=== PATIENT | female | born 1985 ===

== ENCOUNTER 2019-08-15 17:24 | Inpatient (IN) ==
[2019-08-15] MEDS ORDERED: INFLUENZA VIRUS VACCINE 0.5 ML SYRINGE IM ONE (21:37)
[2019-08-15] MEDS ORDERED: diphenhydrAMINE CAP 25 MG CAPSULE PO PRN (23:07)
[2019-08-15] MEDS ORDERED: DEXTROSE 50% 25 GM/50 ML VIAL IV PRN (23:07)
[2019-08-15] MEDS ORDERED: ONDANSETRON 4 MG/2 ML VIAL IV PRN (23:07)
[2019-08-15] MEDS ORDERED: NICOTINE 21 MG/24 HR PATCH TRANSDERM PRN (23:07)
[2019-08-15] MEDS ORDERED: BISACODYL 5 MG TABLET PO PRN (23:07)
[2019-08-15] MEDS ORDERED: GLUCAGON 1 MG VIAL IM PRN (23:07)
[2019-08-15 23:54] LABS: Basophils % 0.5 % (0.0-0.8); Eosinophils # 0.3 10*3/uL (0.0-0.87); Eosinophils % 3.4 % (0.00-10.9); Hematocrit 27.6 VOL% (35.7-47.0); Hemoglobin 9.6 GM/DL (12.0-16.0); Immature Granulocytes % 0.8 %; Immature Granulocytes Absolute 0.07 #; Lymphocytes # 2.5 10*3/uL (1.4-4.0); Lymphocytes % 29.1 % (21.3-54.2); Mean Corpuscular HGB Conc 34.8 GM/DL (32-36); Mean Corpuscular Volume 91.7 FL (87-102); Mean Platelet Volume 10.7 FL (9.6-12.0); Monocytes % 7.2 % (1.7-12.7); Platelet Count 235 T/CUMM (130-400); Red Blood Count 3.01 MC/CUMM (3.8-5.5); Red Cell Distribution Width 12.3 % (9.3-17.3); White Blood Count 8.5 T/CUMM (4-12)
[2019-08-16 00:17] LABS: Albumin 1.4 G/DL (3.4-5.0); Bilirubin,Total 0.4 MG/DL (0.2-1.0); Calcium 8.2 MG/DL (8.5-10.1); Osmolality,Calculated 283.4 MOS/KG (273-304); Risk Ratio 4.41; VLDL CHOLESTEROL 69.2 MG/DL
[2019-08-16] MEDS: SODIUM CHLORIDE 0.9% 1,000 ML IV SCH ×2 (01:02→11:25)
[2019-08-16] MEDS: INSULIN REGULAR 100 UNIT/ML SUBCUT SCH ×4 (01:04→17:29)
[2019-08-16 01:06] LABS: Barbiturates Screen,Urine Negative (Negative); Benzodiazepines Screen,Urine Negative (Negative); Cannabinoid Screen,Urine Negative (Negative); Opiate Screen,Urine Positive (Negative); Phencyclidine Screen,Urine Negative (Negative)
[2019-08-16 01:11] LABS: Apearance,Urine CLEAR (Clear); Bilirubin,Urine Negative (Negative); Blood, Urine Negative (Negative); Glucose,Urine (UA) >=500 mg/dL (Negative); Hyaline Casts,Urine 6 /LPF (0-3); Ketones,Urine Negative (Negative); Mucus,Urine Occasional /LPF (Occasional); Nitrite,Urine Negative (Negative); Protein,Urine >=500 MG/DL; RBC,Urine 9 /HPF (0-4); Squamous Epithelial Cell,Urine Occasional /HPF (0-10); Transitional Epi Cells,Urine Occasional /HPF (<1); Urine Color Yellow (Yellow); Urine Specific Gravity 1.018 (1.001-1.035); Urine Urobilinogen < 2.0 EU/DL (0.2-1.0); WBC,Urine 2 /HPF (0-6)
[2019-08-16] MEDS: VANCOMYCIN INJ 1,750 MG in SODIUM CHLORIDE 0.9% 500 ML IV SCH ×2 (03:00→13:25)
[2019-08-16] MEDS: ACETAMINOPHEN 325 MG TABLET PO PRN ×2 (06:15→11:24)
[2019-08-16] MEDS ORDERED: IBUPROFEN 600 MG TABLET PO PRN (08:58)
[2019-08-16] MEDS: ASPIRIN 325 MG TABLET PO SCH (11:24)
[2019-08-16] MEDS: POTASSIUM CHLORIDE 20 MEQ TABLET PO PRN ×2 (11:25→18:34)
[2019-08-17] MEDS: INSULIN REGULAR 100 UNIT/ML SUBCUT SCH ×4 (02:00→20:35)
[2019-08-17] MEDS: SODIUM CHLORIDE 0.9% 1,000 ML IV SCH ×4 (02:03→15:11)
[2019-08-17] MEDS: VANCOMYCIN INJ 1,750 MG in SODIUM CHLORIDE 0.9% 500 ML IV SCH ×2 (02:07→17:16)
[2019-08-17] MEDS ORDERED: BUPIVACAINE MPF 0.25% 30 ML VIAL ONE (06:39)
[2019-08-17] MEDS ORDERED: LIDOCAINE MPF 1% /EPI 30 ML VIAL ONE (06:39)
[2019-08-17] MEDS ORDERED: MIDAZOLAM 2 MG/2 ML VIAL ONE (08:33)
[2019-08-17] MEDS ORDERED: LIDOCAINE 2% 5 ML VIAL ONE (08:33)
[2019-08-17] MEDS ORDERED: PROPOFOL 200 MG/20 ML VIAL IV ONE (08:33)
[2019-08-17] MEDS ORDERED: SODIUM CHLORIDE 0.9% 250 ML IV ONE (08:34)
[2019-08-17] MEDS ORDERED: fentaNYL 100 MCG/2 ML VIAL ONE (08:34)
[2019-08-17] MEDS ORDERED: KETAMINE 500 MG/10 ML VIAL ONE (08:34)
[2019-08-17] MEDS ORDERED: ONDANSETRON 4 MG/2 ML VIAL IV PRN (08:49)
[2019-08-17] MEDS ORDERED: HYDROmorphone 2 MG/1 ML VIAL IV PRN (08:49)
[2019-08-17] MEDS ORDERED: HYDROmorphone 2 MG/1 ML VIAL ONE (08:53)
[2019-08-17] MEDS ORDERED: ONDANSETRON 4 MG/2 ML VIAL ONE (08:53)
[2019-08-17] MEDS: ASPIRIN 325 MG TABLET PO SCH (10:23)
[2019-08-17] MEDS: RIVAROXABAN 15 MG TABLET PO SCH (10:23)
[2019-08-17] MEDS ORDERED: KETOROLAC 30 MG/1 ML VIAL IV ONE (10:39)
[2019-08-17 14:57] LABS: Protein/Creatinine Ratio,Urine 13.2 RATIO
[2019-08-17] MEDS ORDERED: ASPIRIN CHEW 81 MG TABLET PO ONE (20:52)
[2019-08-17] MEDS: ACETAMINOPHEN 325 MG TABLET PO PRN (23:14)
[2019-08-18] MEDS: INSULIN REGULAR 100 UNIT/ML SUBCUT SCH ×2 (01:00→07:23)
[2019-08-18] MEDS: VANCOMYCIN INJ 1,750 MG in SODIUM CHLORIDE 0.9% 500 ML IV SCH (02:15)
[2019-08-18] MEDS: SODIUM CHLORIDE 0.9% 1,000 ML IV SCH (02:17)
[2019-08-18 05:49] LABS: Calcium 7.2 MG/DL (8.5-10.1); Osmolality,Calculated 289.3 MOS/KG (273-304)
[2019-08-18] MEDS: ASPIRIN 325 MG TABLET PO SCH (09:55)
[2019-08-18] MEDS: RIVAROXABAN 15 MG TABLET PO SCH (09:55)
[2019-08-18 11:36] LABS: Protein C Activity Plasma 110 % (70 - 150)
[2019-08-18 14:00] VITALS: BP 166/86
[2019-08-18 15:45] LABS: DRVVT Screen Ratio 1.1 ratio (0.0 - 1.1)
[2019-08-19 11:44] LABS: Protein S Activity Plasma 159 % (50 - 160)
[2019-08-21 16:16] LABS: FACV Specimen Whole Blood
== END 2019-08-18 13:32 | disposition home or self-care (01) | DRG 988 ==
LOC: N.4E 20:17
PROVIDERS: ADMIT Internal Medicine; ATTEND Internal Medicine Geriatric Medicine

== ENCOUNTER 2019-09-30 12:56 | Observation (INO) ==
[2019-09-30] MEDS ORDERED: INFLUENZA VIRUS VACCINE 0.5 ML SYRINGE IM ONE (14:54)
[2019-09-30] MEDS ORDERED: MORPHINE 4 MG/1 ML VIAL IV PRN (15:05)
[2019-09-30] MEDS ORDERED: ONDANSETRON 4 MG/2 ML VIAL IV PRN (15:05)
[2019-09-30] MEDS ORDERED: PROMETHAZINE 25 MG/1 ML VIAL IM PRN (15:05)
[2019-09-30] MEDS ORDERED: ACETAMINOPHEN 325 MG TABLET PO PRN (15:05)
[2019-09-30] MEDS ORDERED: SODIUM CHLORIDE 0.9% 1,000 ML IV ONE (15:08)
[2019-09-30] MEDS ORDERED: GLUCAGON 1 MG VIAL IM PRN (15:09)
[2019-09-30] MEDS ORDERED: DEXTROSE 50% 25 GM/50 ML VIAL IV PRN (15:09)
[2019-09-30 15:41] LABS: Basophils # 0.1 10*3/uL (0.0-0.2); Basophils % 0.4 % (0.0-0.8); Eosinophils % 0.1 % (0.00-10.9); Hematocrit 32.3 VOL% (35.7-47.0); Immature Granulocytes Absolute 0.18 #; Lymphocytes # 1.7 10*3/uL (1.4-4.0); Mean Corpuscular HGB Conc 34.1 GM/DL (32-36); Mean Corpuscular Volume 91.2 FL (87-102); Mean Platelet Volume 10.5 FL (9.6-12.0); Neutrophils % 85.5 % (38.7-73.9); Platelet Count 277 T/CUMM (130-400); Red Blood Count 3.54 MC/CUMM (3.8-5.5); Red Cell Distribution Width 12.9 % (9.3-17.3); White Blood Count 17.3 T/CUMM (4-12)
[2019-09-30] MEDS ORDERED: ACETAMINOPHEN 500 MG TABLET PO ONE (15:43)
[2019-09-30 16:02] LABS: Albumin 1.8 G/DL (3.4-5.0); Bilirubin,Total 0.4 MG/DL (0.2-1.0); Osmolality,Calculated 286.3 MOS/KG (273-304); Total Protein 5.7 G/DL (6.4-8.3)
[2019-09-30 16:10] LABS: Thyroid Stimulating Hormone 1.62 uIU/ml (0.358-3.74)
[2019-09-30] MEDS ORDERED: MAGNESIUM SULF RIDER 2 GM in PREMIX 1 EACH IV ONE (16:13)
[2019-09-30] MEDS: INSULIN REGULAR 100 UNIT/ML SUBCUT SCH ×2 (16:37→20:42)
[2019-09-30] MEDS: PANTOPRAZOLE 40 MG TABLET PO SCH (16:37)
[2019-09-30] MEDS ORDERED: BICILLIN LA 1,200,000 UNIT/2 ML SYRINGE IM STA (16:50)
[2019-09-30] MEDS: SODIUM CHLORIDE 0.9% 1,000 ML IV SCH (17:43)
[2019-09-30] MEDS: AMPICILLIN/SULBACTAM 3,000 MG in SODIUM CHLORIDE 0.9% 100 ML IV SCH (17:50)
[2019-09-30 20:28] LABS: Apearance,Urine Slightly Hazy (Clear); Bacteria,Urine Occasional /HPF (Few); Bilirubin,Urine Negative (Negative); Blood, Urine Small mg/dL (Negative); Glucose,Urine (UA) >=500 mg/dL (Negative); Hyaline Casts,Urine 7 /LPF (0-3); Ketones,Urine Negative (Negative); Mucus,Urine Occasional /LPF (Occasional); Nitrite,Urine Negative (Negative); Protein,Urine >=500 MG/DL; RBC,Urine 8 /HPF (0-4); Squamous Epithelial Cell,Urine Occasional /HPF (0-10); Transitional Epi Cells,Urine Occasional /HPF (<1); Urine Color Yellow (Yellow); Urine Urobilinogen < 2.0 EU/DL (0.2-1.0); WBC,Urine 2 /HPF (0-6)
[2019-10-01 01:03] LABS: Basophils % 0.2 % (0.0-0.8); Eosinophils % 0.1 % (0.00-10.9); Hematocrit 29.8 VOL% (35.7-47.0); Hemoglobin 10.3 GM/DL (12.0-16.0); Immature Granulocytes Absolute 0.33 #; Lymphocytes # 1.7 10*3/uL (1.4-4.0); Lymphocytes % 10.2 % (21.3-54.2); Mean Corpuscular HGB Conc 34.6 GM/DL (32-36); Mean Corpuscular Volume 91.1 FL (87-102); Mean Platelet Volume 10.6 FL (9.6-12.0); Monocytes % 4.3 % (1.7-12.7); Neutrophils % 83.2 % (38.7-73.9); Platelet Count 245 T/CUMM (130-400); Red Blood Count 3.27 MC/CUMM (3.8-5.5); Red Cell Distribution Width 12.7 % (9.3-17.3); White Blood Count 16.2 T/CUMM (4-12)
[2019-10-01] MEDS: AMPICILLIN/SULBACTAM 3,000 MG in SODIUM CHLORIDE 0.9% 100 ML IV SCH ×2 (01:35→08:48)
[2019-10-01 04:52] LABS: Basophils # 0.1 10*3/uL (0.0-0.2); Basophils % 0.4 % (0.0-0.8); Eosinophils % 0.1 % (0.00-10.9); Hematocrit 32.8 VOL% (35.7-47.0); Hemoglobin 11.1 GM/DL (12.0-16.0); Immature Granulocytes % 1.1 %; Immature Granulocytes Absolute 0.16 #; Lymphocytes % 14.2 % (21.3-54.2); Mean Corpuscular HGB Conc 33.8 GM/DL (32-36); Mean Corpuscular Volume 91.1 FL (87-102); Monocytes % 3.9 % (1.7-12.7); Neutrophils % 80.3 % (38.7-73.9); Platelet Count 249 T/CUMM (130-400); Red Cell Distribution Width 12.7 % (9.3-17.3); White Blood Count 14.3 T/CUMM (4-12)
[2019-10-01 05:17] LABS: Calcium 7.4 MG/DL (8.5-10.1); Osmolality,Calculated 282.5 MOS/KG (273-304)
[2019-10-01 05:22] LABS: Risk Ratio 4.38
[2019-10-01] MEDS ORDERED: ACETAMINOPHEN 500 MG TABLET PO ONE (08:32)
[2019-10-01] MEDS ORDERED: HYDROcodone/CHLORPHENIRAMINE ER 5 ML UDCUP PO ONE (08:39)
[2019-10-01] MEDS: INSULIN REGULAR 100 UNIT/ML SUBCUT SCH ×2 (08:47→11:59)
[2019-10-01] MEDS: PANTOPRAZOLE 40 MG TABLET PO SCH (08:48)
[2019-10-01] MEDS ORDERED: glyBURIDE/METFORMIN 5-500 MG TABLET PO SCH (10:45)
[2019-10-01] MEDS: SODIUM CHLORIDE 0.9% 1,000 ML IV SCH (10:48)
[2019-10-01] MEDS ORDERED: AZITHROMYCIN 250 MG TABLET PO ONE (10:51)
[2019-10-01] MEDS ORDERED: POTASSIUM CHLORIDE 10 MEQ TABLET PO SCH (11:00)
[2019-10-01] MEDS ORDERED: RIVAROXABAN 15 MG TABLET PO SCH (11:00)
[2019-10-01] MEDS ORDERED: metOLazone 5 MG TABLET PO SCH (11:00)
[2019-10-01] MEDS ORDERED: LOSARTAN 50 MG TABLET PO SCH (11:00)
[2019-10-01] MEDS ORDERED: METOPROLOL TARTRATE 25 MG TABLET PO ONE (11:46)
[2019-10-01 16:13] VITALS: BP 117/79
[2019-10-01] MEDS ORDERED: INSULIN GLARGINE 100 UNIT/ML SUBCUT SCH (21:00)
[2019-10-03 11:27] LABS: Total Protein (Chem) 5.1 G/DL (6.4-8.3)
[2019-10-04 10:40] LABS: Albumin (SPE) 2.2 G/DL (3.2-5.3); Albumin (SPE) Rel % 43.7 %; Alpha 1 (SPE) 0.2 G/DL (0.1-0.4); Alpha 1 (SPE) Rel % 3.9 %; Alpha 2 (SPE) 1.1 G/DL (0.4-1.0); Alpha 2 (SPE) Rel % 22.5 %; Beta (SPE) 0.8 G/DL (0.5-1.1); Gamma (SPE) 0.7 G/DL (0.7-1.7); Gamma (SPE) Rel % 13.3 %
[2019-10-04 10:43] LABS: Beta (SPE) Rel % 16.6 %
== END 2019-10-01 18:00 | disposition home or self-care (01) ==
LOC: N.2E 14:36 → INTOOBSV 14:36 → SUATTDRO 14:36
PROVIDERS: ADMIT Internal Medicine; ATTEND Internal Medicine

== ENCOUNTER 2020-01-10 13:43 | Inpatient (IN) ==
[2020-01-10] MEDS: LEVOFLOXACIN INJ 750 MG in PREMIX 1 EACH IV SCH (18:25)
[2020-01-10] MEDS ORDERED: GLUCAGON 1 MG VIAL IM PRN (18:29)
[2020-01-10] MEDS ORDERED: DEXTROSE 10% 250 ML BAG IV PRN (18:29)
[2020-01-10 18:32] LABS: Basophils % 0.3 % (0.0-0.8); Eosinophils # 0.3 10*3/uL (0.0-0.87); Eosinophils % 3.1 % (0.00-10.9); Hematocrit 29.8 VOL% (35.7-47.0); Hemoglobin 9.8 GM/DL (12.0-16.0); Immature Granulocytes Absolute 0.09 #; Lymphocytes # 2.4 10*3/uL (1.4-4.0); Lymphocytes % 26.5 % (21.3-54.2); Mean Corpuscular HGB Conc 32.9 GM/DL (32-36); Mean Corpuscular Volume 92.8 FL (87-102); Mean Platelet Volume 10.7 FL (9.6-12.0); Monocytes % 6.5 % (1.7-12.7); Neutrophils % 62.6 % (38.7-73.9); Platelet Count 280 T/CUMM (130-400); Red Blood Count 3.21 MC/CUMM (3.8-5.5); Red Cell Distribution Width 13.1 % (9.3-17.3); White Blood Count 8.9 T/CUMM (4-12)
[2020-01-10 18:53] LABS: Alanine Aminotransferase 12 U/L (13-56); Albumin 1.1 G/DL (3.4-5.0); Alkaline Phosphatase 102 U/L (45-117); Aspartate Amino Transferase 12 U/L (0-37); Bilirubin,Total < 0.39 MG/DL (0.2-1.0); Blood Urea Nitrogen 7 MG/DL (7-18); Calcium 7.4 MG/DL (8.5-10.1); Estimated Glom Filtration Rate 65 ML/MIN; Glucose 89 MG/DL (74-106); Osmolality,Calculated 273.5 MOS/KG (273-304); Total Protein 4.9 G/DL (6.4-8.3)
[2020-01-10] MEDS ORDERED: ONDANSETRON 4 MG/2 ML VIAL IV PRN (19:55)
[2020-01-10] MEDS: VANCOMYCIN INJ 1,500 MG in SODIUM CHLORIDE 0.9% 500 ML IV SCH (20:58)
[2020-01-10] MEDS: INSULIN LISPRO 100 UNIT/ML SUBCUT SCH (20:58)
[2020-01-10] MEDS ORDERED: PROMETHAZINE 25 MG/1 ML VIAL IM PRN (23:01)
[2020-01-10] MEDS ORDERED: CETIRIZINE 10 MG TABLET PO PRN (23:42)
[2020-01-11 05:17] LABS: Basophils % 0.5 % (0.0-0.8); Eosinophils # 0.2 10*3/uL (0.0-0.87); Eosinophils % 2.4 % (0.00-10.9); Hematocrit 29.6 VOL% (35.7-47.0); Hemoglobin 9.8 GM/DL (12.0-16.0); Immature Granulocytes % 0.9 %; Immature Granulocytes Absolute 0.08 #; Lymphocytes # 2.5 10*3/uL (1.4-4.0); Lymphocytes % 28.8 % (21.3-54.2); Mean Corpuscular HGB Conc 33.1 GM/DL (32-36); Mean Corpuscular Volume 94.3 FL (87-102); Mean Platelet Volume 10.8 FL (9.6-12.0); Monocytes % 6.2 % (1.7-12.7); Neutrophils % 61.2 % (38.7-73.9); Platelet Count 260 T/CUMM (130-400); Red Blood Count 3.14 MC/CUMM (3.8-5.5); Red Cell Distribution Width 13.2 % (9.3-17.3); White Blood Count 8.7 T/CUMM (4-12)
[2020-01-11 05:33] LABS: Calcium 7.5 MG/DL (8.5-10.1); Osmolality,Calculated 283.1 MOS/KG (273-304)
[2020-01-11] MEDS ORDERED: SODIUM CHLORIDE 0.9% 1,000 ML IV SCH (09:00)
[2020-01-11] MEDS ORDERED: LOSARTAN 50 MG TABLET PO SCH (09:00)
[2020-01-11] MEDS: INSULIN LISPRO 100 UNIT/ML SUBCUT SCH ×4 (09:06→22:04)
[2020-01-11] MEDS: ROSUVASTATIN 20 MG TABLET PO SCH (09:07)
[2020-01-11] MEDS: MAGNESIUM OXIDE 400 MG TABLET PO SCH (09:07)
[2020-01-11] MEDS: POTASSIUM CHLORIDE 10 MEQ TABLET PO SCH (09:07)
[2020-01-11] MEDS: VANCOMYCIN INJ 1,500 MG in SODIUM CHLORIDE 0.9% 500 ML IV SCH ×2 (09:07→22:04)
[2020-01-11] MEDS: PANTOPRAZOLE 40 MG TABLET PO SCH (09:17)
[2020-01-11] MEDS ORDERED: LIDOCAINE 1% 20 ML VIAL ONE (14:49)
[2020-01-11] MEDS ORDERED: BUPIVACAINE MPF 0.25% 30 ML VIAL ONE (14:49)
[2020-01-11] MEDS ORDERED: LIDOCAINE 2% 5 ML VIAL ONE (15:59)
[2020-01-11] MEDS ORDERED: fentaNYL 100 MCG/2 ML VIAL ONE (15:59)
[2020-01-11] MEDS ORDERED: propofoL 200 MG/20 ML VIAL IV ONE (15:59)
[2020-01-11] MEDS ORDERED: SEVOFLURANE 1 UNIT/15 MINUTE INH ONE (15:59)
[2020-01-11] MEDS ORDERED: MIDAZOLAM 2 MG/2 ML VIAL ONE (16:00)
[2020-01-11] MEDS ORDERED: ONDANSETRON 4 MG/2 ML VIAL ONE (16:00)
[2020-01-11] MEDS ORDERED: ONDANSETRON 4 MG/2 ML VIAL IV PRN (16:13)
[2020-01-11] MEDS: HYDROmorphone 2 MG/1 ML VIAL IV PRN ×2 (16:15→16:26)
[2020-01-11] MEDS: LEVOFLOXACIN INJ 750 MG in PREMIX 1 EACH IV SCH (17:12)
[2020-01-12] MEDS ORDERED: traMADol 50 MG TABLET PO ONE (03:25)
[2020-01-12] MEDS ORDERED: ALUMINUM/MAGNES/SIMETH MAX STR 30 ML UDCUP PO PRN (04:00)
[2020-01-12 04:53] LABS: Basophils % 0.4 % (0.0-0.8); Eosinophils # 0.2 10*3/uL (0.0-0.87); Eosinophils % 2.2 % (0.00-10.9); Hematocrit 31.4 VOL% (35.7-47.0); Hemoglobin 10.2 GM/DL (12.0-16.0); Immature Granulocytes Absolute 0.08 #; Lymphocytes # 2.7 10*3/uL (1.4-4.0); Lymphocytes % 32.7 % (21.3-54.2); Mean Corpuscular HGB Conc 32.5 GM/DL (32-36); Mean Corpuscular Volume 94.9 FL (87-102); Mean Platelet Volume 10.6 FL (9.6-12.0); Neutrophils % 56.7 % (38.7-73.9); Platelet Count 270 T/CUMM (130-400); Red Blood Count 3.31 MC/CUMM (3.8-5.5); Red Cell Distribution Width 12.9 % (9.3-17.3); White Blood Count 8.2 T/CUMM (4-12)
[2020-01-12 05:10] LABS: Calcium 7.4 MG/DL (8.5-10.1); Osmolality,Calculated 282.4 MOS/KG (273-304)
[2020-01-12] MEDS ORDERED: SULFAMETHOX/TRIMETHOPRIM 800-160 MG TABLET PO SCH (09:00)
[2020-01-12] MEDS ORDERED: SODIUM HYPOCHLORITE 0.25% IRRIG 473 ML BOTTLE TOP SCH (10:00)
[2020-01-12] MEDS: ROSUVASTATIN 20 MG TABLET PO SCH (10:30)
[2020-01-12] MEDS: MAGNESIUM OXIDE 400 MG TABLET PO SCH (10:30)
[2020-01-12] MEDS: POTASSIUM CHLORIDE 10 MEQ TABLET PO SCH (10:30)
[2020-01-12] MEDS: PANTOPRAZOLE 40 MG TABLET PO SCH (10:30)
[2020-01-12] MEDS: INSULIN LISPRO 100 UNIT/ML SUBCUT SCH (11:17)
[2020-01-12 13:45] VITALS: BP 152/87
== END 2020-01-12 13:15 | disposition home or self-care (01) | DRG 988 ==
LOC: SUATTDRO 15:43 → N.3E 15:43
PROVIDERS: ADMIT Internal Medicine; ATTEND Internal Medicine

== ENCOUNTER 2020-03-07 18:07 | Inpatient (IN) ==
[2020-03-08] MEDS ORDERED: GLUCAGON 1 MG VIAL IM PRN (03:02)
[2020-03-08] MEDS ORDERED: PROMETHAZINE 25 MG/1 ML VIAL IM PRN (03:02)
[2020-03-08] MEDS ORDERED: hydrALAZINE 20 MG/1 ML VIAL IV PRN (03:02)
[2020-03-08] MEDS ORDERED: DEXTROSE 50% 25 GM/50 ML SYRINGE IV PRN (03:02)
[2020-03-08] MEDS ORDERED: ENOXAPARIN 40 MG/0.4 ML SYRINGE SUBCUT SCH (03:30)
[2020-03-08] MEDS: cefTRIAXone 1,000 MG in SYRINGE 1 EACH IV SCH (05:42)
[2020-03-08] MEDS ORDERED: DEXTROSE 10% 250 ML BAG IV PRN (08:30)
[2020-03-08] MEDS ORDERED: ZINC SULFATE 220 MG CAPSULE PO SCH (09:00)
[2020-03-08] MEDS ORDERED: AZITHROMYCIN 250 MG TABLET PO ONE (09:00)
[2020-03-08] MEDS: HYDROXYCHLOROQUINE 200 MG TABLET PO SCH ×2 (09:12→20:37)
[2020-03-08] MEDS: INSULIN LISPRO 100 UNIT/ML SUBCUT SCH ×4 (09:28→20:37)
[2020-03-08] MEDS: ACETAMINOPHEN 325 MG TABLET PO PRN ×3 (09:28→20:51)
[2020-03-08 09:51] LABS: Basophils % 0.2 % (0.0-0.8); Eosinophils % 0.2 % (0.00-10.9); Hematocrit 32.4 VOL% (35.7-47.0); Hemoglobin 10.8 GM/DL (12.0-16.0); Immature Granulocytes % 0.7 %; Immature Granulocytes Absolute 0.06 #; Lymphocytes # 2.3 10*3/uL (1.4-4.0); Lymphocytes % 28.6 % (21.3-54.2); Mean Corpuscular HGB Conc 33.3 GM/DL (32-36); Mean Platelet Volume 10.8 FL (9.6-12.0); Monocytes % 7.2 % (1.7-12.7); Neutrophils % 63.1 % (38.7-73.9); Platelet Count 243 T/CUMM (130-400); Red Blood Count 3.52 MC/CUMM (3.8-5.5)
[2020-03-08 10:17] LABS: Alanine Aminotransferase 19 U/L (13-56); Albumin 1.1 G/DL (3.4-5.0); Alkaline Phosphatase 114 U/L (45-117); Aspartate Amino Transferase 34 U/L (0-37); Bilirubin,Total < 0.39 MG/DL (0.2-1.0); Blood Urea Nitrogen 12 MG/DL (7-18); Calcium 7.6 MG/DL (8.5-10.1); Estimated Glom Filtration Rate 43 ML/MIN; Ferritin 594.4 ng/ml (8-252); Glucose 208 MG/DL (74-106); Osmolality,Calculated 282.5 MOS/KG (273-304); Total Protein 5.8 G/DL (6.4-8.3)
[2020-03-08] MEDS: ONDANSETRON 4 MG/2 ML VIAL IV PRN (11:59)
[2020-03-08] MEDS: guaiFENesin/DM ER 600-30 MG TABLET PO SCH ×2 (14:02→20:37)
[2020-03-09] MEDS: ACETAMINOPHEN 325 MG TABLET PO PRN ×2 (00:24→08:30)
[2020-03-09] MEDS: ONDANSETRON 4 MG/2 ML VIAL IV PRN ×2 (03:05→11:18)
[2020-03-09] MEDS: cefTRIAXone 1,000 MG in SYRINGE 1 EACH IV SCH (03:08)
[2020-03-09] MEDS: INSULIN LISPRO 100 UNIT/ML SUBCUT SCH ×2 (08:30→11:17)
[2020-03-09] MEDS: guaiFENesin/DM ER 600-30 MG TABLET PO SCH (08:30)
[2020-03-09] MEDS ORDERED: AZITHROMYCIN 250 MG TABLET PO SCH (09:00)
[2020-03-09] MEDS ORDERED: HYDROXYCHLOROQUINE 200 MG TABLET PO SCH (09:00)
[2020-03-09 09:30] LABS: Basophils % 0.2 % (0.0-0.8); Eosinophils % 0.2 % (0.00-10.9); Hematocrit 31.7 VOL% (35.7-47.0); Hemoglobin 10.3 GM/DL (12.0-16.0); Immature Granulocytes Absolute 0.06 #; Lymphocytes # 1.9 10*3/uL (1.4-4.0); Lymphocytes % 30.4 % (21.3-54.2); Mean Corpuscular HGB Conc 32.5 GM/DL (32-36); Mean Corpuscular Volume 93.8 FL (87-102); Mean Platelet Volume 10.4 FL (9.6-12.0); Monocytes % 8.2 % (1.7-12.7); Platelet Count 269 T/CUMM (130-400); Red Blood Count 3.38 MC/CUMM (3.8-5.5); White Blood Count 6.2 T/CUMM (4-12)
[2020-03-09 09:48] LABS: Calcium 7.5 MG/DL (8.5-10.1); Osmolality,Calculated 279.5 MOS/KG (273-304)
[2020-03-09 10:14] LABS: Anisocytosis Slight; Band Neutrophils 9 % (0-10); Lymphocytes 20 % (20-55); Macrocytosis Slight; Platelet Estimate Normal; Segmented Neutrophils 66 % (50-85); Smudge Cells Few; Total Cells Counted 100
[2020-03-09 11:56] VITALS: BP 126/78
[2020-03-09] MEDS ORDERED: ENOXAPARIN 40 MG/0.4 ML SYRINGE SUBCUT SCH (21:00)
== END 2020-03-09 15:25 | disposition home or self-care (01) | DRG 177 ==
LOC: N.2W 21:32 → SUATTDRO 21:32
PROVIDERS: ADMIT Internal Medicine; ATTEND Family Medicine

== ENCOUNTER 2020-11-10 22:44 | Inpatient (IN) ==
[2020-11-10 23:13] LABS: Basophils # 0.1 10*3/uL (0.0-0.2); Basophils % 0.3 % (0.0-0.8); Eosinophils # 0.5 10*3/uL (0.0-0.87); Eosinophils % 1.8 % (0.00-10.9); Hematocrit 25.8 VOL% (35.7-47.0); Hemoglobin 8.6 GM/DL (12.0-16.0); Immature Granulocytes % 3.9 %; Immature Granulocytes Absolute 1.02 #; Lymphocytes # 3.2 10*3/uL (1.4-4.0); Lymphocytes % 12.2 % (21.3-54.2); Mean Corpuscular HGB Conc 33.3 GM/DL (32-36); Mean Corpuscular Volume 93.1 FL (87-102); Mean Platelet Volume 9.9 FL (9.6-12.0); Monocytes % 7.5 % (1.7-12.7); Neutrophils % 74.3 % (38.7-73.9); Platelet Count 462 T/CUMM (130-400); Red Blood Count 2.77 MC/CUMM (3.8-5.5); Red Cell Distribution Width 13.6 % (9.3-17.3); White Blood Count 26.4 T/CUMM (4-12)
[2020-11-10 23:32] LABS: Albumin 1.1 G/DL (3.4-5.0); Bilirubin,Total 0.8 MG/DL (0.2-1.0); Calcium 7.1 MG/DL (8.5-10.1); Ferritin 543.7 ng/ml (8-252); Osmolality,Calculated 262.2 MOS/KG (273-304); Total Protein 6.4 G/DL (6.4-8.3)
[2020-11-10 23:37] LABS: Band Neutrophils 3 % (0-10); Eosinophils 3 % (0-10); Hypochromasia 1+; Lymphocytes 12 % (20-55); Platelet Estimate Increased; Polychromasia Few; Segmented Neutrophils 74 % (50-85); Total Cells Counted 100
[2020-11-10] MEDS ORDERED: SODIUM CHLORIDE 0.9% 500 ML IV STA (23:48)
[2020-11-10] MEDS ORDERED: PIPERACILLIN/TAZOBACTAM 3,375 MG in SODIUM CHLORIDE 0.9% 100 ML IV STA (23:49)
[2020-11-11] MEDS ORDERED: AZITHROMYCIN INJ 500 MG in SODIUM CHLORIDE 0.9% 250 ML IV SCH (00:30)
[2020-11-11] MEDS ORDERED: ONDANSETRON 4 MG/2 ML VIAL IV STA (00:34)
[2020-11-11] MEDS ORDERED: ONDANSETRON 4 MG/2 ML VIAL IV PRN (00:38)
[2020-11-11] MEDS ORDERED: hydrALAZINE 20 MG/1 ML VIAL IV PRN (00:38)
[2020-11-11] MEDS ORDERED: diphenhydrAMINE CAP 25 MG CAPSULE PO PRN (00:38)
[2020-11-11] MEDS ORDERED: guaiFENesin/DM ER 600-30 MG TABLET PO PRN (00:38)
[2020-11-11] MEDS ORDERED: NICOTINE 21 MG/24 HR PATCH TRANSDERM PRN (00:38)
[2020-11-11] MEDS ORDERED: DEXTROSE 50% 25 GM/50 ML VIAL IV PRN ×2 (00:38)
[2020-11-11] MEDS ORDERED: GLUCAGON 1 MG VIAL IM PRN ×2 (00:38)
[2020-11-11] MEDS: DEXAMETHASONE 10 MG/1 ML VIAL IV SCH ×2 (00:49→09:05)
[2020-11-11] MEDS ORDERED: INFLUENZA VIRUS VACCINE 0.5 ML SYRINGE IM ONE (04:30)
[2020-11-11] MEDS ORDERED: PNEUMOCOCCAL VACCINE (13 VALENT) 0.5 ML SYRINGE IM ONE (04:46)
[2020-11-11] MEDS: MORPHINE 4 MG/1 ML VIAL IV PRN ×2 (05:25→17:58)
[2020-11-11 08:26] LABS: Basophils # 0.1 10*3/uL (0.0-0.2); Basophils % 0.2 % (0.0-0.8); Hematocrit 22.5 VOL% (35.7-47.0); Hemoglobin 7.5 GM/DL (12.0-16.0); Immature Granulocytes % 4.1 %; Immature Granulocytes Absolute 1.04 #; Lymphocytes # 0.8 10*3/uL (1.4-4.0); Lymphocytes % 3.1 % (21.3-54.2); Mean Corpuscular HGB Conc 33.3 GM/DL (32-36); Mean Corpuscular Volume 93.4 FL (87-102); Monocytes % 3.6 % (1.7-12.7); Platelet Count 459 T/CUMM (130-400); Red Blood Count 2.41 MC/CUMM (3.8-5.5); Red Cell Distribution Width 13.4 % (9.3-17.3); White Blood Count 25.4 T/CUMM (4-12)
[2020-11-11 08:48] LABS: Calcium 7.3 MG/DL (8.5-10.1); Osmolality,Calculated 268.2 MOS/KG (273-304)
[2020-11-11 08:54] LABS: Band Neutrophils 5 % (0-10); Hypochromasia 1+; Lymphocytes 3 % (20-55); Segmented Neutrophils 90 % (50-85); Total Cells Counted 100
[2020-11-11 08:55] LABS: Macrocytosis Slight; Platelet Estimate Increased
[2020-11-11] MEDS: cefTRIAXone 1,000 MG in SYRINGE 1 EACH IV SCH (09:00)
[2020-11-11] MEDS: INSULIN LISPRO 100 UNIT/ML SUBCUT SCH ×4 (09:01→21:09)
[2020-11-11] MEDS: PANTOPRAZOLE 40 MG TABLET PO SCH (09:01)
[2020-11-11] MEDS: AZITHROMYCIN 250 MG TABLET PO SCH (09:01)
[2020-11-11] MEDS: ENOXAPARIN 30 MG/0.3 ML SYRINGE SUBCUT SCH (09:01)
[2020-11-11 12:05] LABS: Hepatitis B Core IgM Quant 0.06 Index; Hepatitis B Surface Ag Quant < 0.10 Index; Hepatitis B Surface Ag Result Negative (Negative); Hepatitis C Virus Ab Quant 0.11 Index; Hepatitis C Virus Ab Result Negative (Negative)
[2020-11-11] MEDS ORDERED: HEPARIN 10,000 UNIT/10 ML VIAL IV SCH (14:30)
[2020-11-11] MEDS: ZALEPLON 5 MG CAPSULE PO PRN (21:28)
[2020-11-11] MEDS: ACETAMINOPHEN 325 MG TABLET PO PRN (21:28)
[2020-11-12] MEDS ORDERED: BISACODYL 5 MG TABLET PO PRN (00:56)
[2020-11-12] MEDS ORDERED: BISACODYL 5 MG TABLET PO ONE (00:56)
[2020-11-12] MEDS ORDERED: VANCOMYCIN INJ 1,000 MG in SODIUM CHLORIDE 0.9% 250 ML IV ONE (00:56)
[2020-11-12] MEDS: MORPHINE 4 MG/1 ML VIAL IV PRN ×3 (01:23→15:42)
[2020-11-12] MEDS: PANTOPRAZOLE 40 MG TABLET PO SCH (08:59)
[2020-11-12] MEDS: ENOXAPARIN 30 MG/0.3 ML SYRINGE SUBCUT SCH (08:59)
[2020-11-12] MEDS: AZITHROMYCIN 250 MG TABLET PO SCH (08:59)
[2020-11-12] MEDS: POLYETHYLENE GLYCOL POWDER 17 GM PACK PO SCH (08:59)
[2020-11-12] MEDS: cefTRIAXone 1,000 MG in SYRINGE 1 EACH IV SCH (08:59)
[2020-11-12] MEDS: DEXAMETHASONE 10 MG/1 ML VIAL IV SCH (09:00)
[2020-11-12] MEDS: INSULIN LISPRO 100 UNIT/ML SUBCUT SCH ×4 (09:03→22:00)
[2020-11-12 09:56] LABS: Basophils % 0.2 % (0.0-0.8); Eosinophils % 0.1 % (0.00-10.9); Hemoglobin 7.4 GM/DL (12.0-16.0); Immature Granulocytes % 1.6 %; Immature Granulocytes Absolute 0.31 #; Lymphocytes # 1.3 10*3/uL (1.4-4.0); Lymphocytes % 6.4 % (21.3-54.2); Mean Corpuscular HGB Conc 33.6 GM/DL (32-36); Mean Corpuscular Volume 91.7 FL (87-102); Monocytes % 7.4 % (1.7-12.7); Neutrophils % 84.3 % (38.7-73.9); Platelet Count 533 T/CUMM (130-400); Red Cell Distribution Width 13.4 % (9.3-17.3); White Blood Count 19.4 T/CUMM (4-12)
[2020-11-12 10:03] LABS: Calcium 7.6 MG/DL (8.5-10.1); Osmolality,Calculated 267.7 MOS/KG (273-304)
[2020-11-12] MEDS: ACETAMINOPHEN 325 MG TABLET PO PRN (22:00)
[2020-11-13] MEDS: MORPHINE 4 MG/1 ML VIAL IV PRN ×4 (00:15→23:15)
[2020-11-13 05:26] LABS: Basophils % 0.1 % (0.0-0.8); Eosinophils % 0.1 % (0.00-10.9); Hematocrit 22.1 VOL% (35.7-47.0); Hemoglobin 7.2 GM/DL (12.0-16.0); Immature Granulocytes % 1.4 %; Immature Granulocytes Absolute 0.23 #; Lymphocytes # 1.7 10*3/uL (1.4-4.0); Lymphocytes % 10.2 % (21.3-54.2); Mean Corpuscular HGB Conc 32.6 GM/DL (32-36); Mean Corpuscular Volume 92.9 FL (87-102); Mean Platelet Volume 10.1 FL (9.6-12.0); Monocytes % 10.2 % (1.7-12.7); NRBC # 0.02 10*3/uL; Platelet Count 534 T/CUMM (130-400); Red Blood Count 2.38 MC/CUMM (3.8-5.5); Red Cell Distribution Width 13.5 % (9.3-17.3)
[2020-11-13 05:41] LABS: Calcium 7.2 MG/DL (8.5-10.1); Osmolality,Calculated 270.7 MOS/KG (273-304)
[2020-11-13] MEDS: INSULIN LISPRO 100 UNIT/ML SUBCUT SCH ×4 (08:40→20:50)
[2020-11-13] MEDS: AZITHROMYCIN 250 MG TABLET PO SCH (08:40)
[2020-11-13] MEDS: PANTOPRAZOLE 40 MG TABLET PO SCH (08:40)
[2020-11-13] MEDS: ENOXAPARIN 30 MG/0.3 ML SYRINGE SUBCUT SCH (08:40)
[2020-11-13] MEDS: cefTRIAXone 1,000 MG in SYRINGE 1 EACH IV SCH (08:40)
[2020-11-13] MEDS: POLYETHYLENE GLYCOL POWDER 17 GM PACK PO SCH (08:40)
[2020-11-13] MEDS: DEXAMETHASONE 10 MG/1 ML VIAL IV SCH (08:43)
[2020-11-13] MEDS: ACETAMINOPHEN 325 MG TABLET PO PRN (20:50)
[2020-11-14 05:06] LABS: Basophils % 0.2 % (0.0-0.8); Eosinophils # 0.1 10*3/uL (0.0-0.87); Eosinophils % 0.6 % (0.00-10.9); Hematocrit 20.6 VOL% (35.7-47.0); Hemoglobin 6.7 GM/DL (12.0-16.0); Immature Granulocytes % 2.6 %; Immature Granulocytes Absolute 0.32 #; Lymphocytes # 2.1 10*3/uL (1.4-4.0); Lymphocytes % 16.7 % (21.3-54.2); Mean Corpuscular HGB Conc 32.5 GM/DL (32-36); Mean Corpuscular Volume 94.5 FL (87-102); Mean Platelet Volume 9.9 FL (9.6-12.0); Monocytes % 13.6 % (1.7-12.7); Neutrophils % 66.3 % (38.7-73.9); Platelet Count 548 T/CUMM (130-400); Red Blood Count 2.18 MC/CUMM (3.8-5.5); Red Cell Distribution Width 13.5 % (9.3-17.3); White Blood Count 12.4 T/CUMM (4-12)
[2020-11-14 05:25] LABS: Osmolality,Calculated 272.8 MOS/KG (273-304)
[2020-11-14] MEDS: AZITHROMYCIN 250 MG TABLET PO SCH (08:45)
[2020-11-14] MEDS: ENOXAPARIN 30 MG/0.3 ML SYRINGE SUBCUT SCH (08:46)
[2020-11-14] MEDS: DEXAMETHASONE 10 MG/1 ML VIAL IV SCH (08:46)
[2020-11-14] MEDS: cefTRIAXone 1,000 MG in SYRINGE 1 EACH IV SCH (08:46)
[2020-11-14] MEDS: PANTOPRAZOLE 40 MG TABLET PO SCH (08:46)
[2020-11-14] MEDS: POLYETHYLENE GLYCOL POWDER 17 GM PACK PO SCH (08:46)
[2020-11-14] MEDS: INSULIN LISPRO 100 UNIT/ML SUBCUT SCH ×4 (08:47→21:46)
[2020-11-14] MEDS ORDERED: SODIUM CHLORIDE 0.9% 1,000 ML IV PRN (14:21)
[2020-11-14] MEDS: ACETAMINOPHEN 325 MG TABLET PO PRN (16:07)
[2020-11-14] MEDS: MORPHINE 4 MG/1 ML VIAL IV PRN (21:52)
[2020-11-15] MEDS: ZALEPLON 5 MG CAPSULE PO PRN (01:57)
[2020-11-15] MEDS: MORPHINE 4 MG/1 ML VIAL IV PRN (05:42)
[2020-11-15 05:51] LABS: Calcium 7.3 MG/DL (8.5-10.1); Osmolality,Calculated 271.2 MOS/KG (273-304)
[2020-11-15 06:02] LABS: Basophils % 0.3 % (0.0-0.8); Eosinophils # 0.2 10*3/uL (0.0-0.87); Eosinophils % 1.6 % (0.00-10.9); Hematocrit 26.7 VOL% (35.7-47.0); Immature Granulocytes % 3.2 %; Immature Granulocytes Absolute 0.39 #; Lymphocytes # 2.4 10*3/uL (1.4-4.0); Lymphocytes % 19.8 % (21.3-54.2); Mean Corpuscular Volume 93.7 FL (87-102); Mean Platelet Volume 9.9 FL (9.6-12.0); Monocytes % 13.2 % (1.7-12.7); NRBC # 0.02 10*3/uL; Neutrophils % 61.9 % (38.7-73.9); Platelet Count 487 T/CUMM (130-400); Red Cell Distribution Width 13.5 % (9.3-17.3); White Blood Count 12.3 T/CUMM (4-12)
[2020-11-15 06:03] LABS: Hemoglobin 8.8 GM/DL (12.0-16.0); Red Blood Count 2.85 MC/CUMM (3.8-5.5)
[2020-11-15 06:10] LABS: Band Neutrophils 1 % (0-10); Eosinophils 2 % (0-10); Hypochromasia 2+; Lymphocytes 17 % (20-55); Microcytosis 1+; Platelet Estimate Adequate; Segmented Neutrophils 72 % (50-85); Total Cells Counted 100
[2020-11-15 08:00] VITALS: BP 132/62
[2020-11-15] MEDS: INSULIN LISPRO 100 UNIT/ML SUBCUT SCH ×2 (08:01→12:48)
[2020-11-15] MEDS: cefTRIAXone 1,000 MG in SYRINGE 1 EACH IV SCH (08:50)
[2020-11-15] MEDS: POLYETHYLENE GLYCOL POWDER 17 GM PACK PO SCH (08:50)
[2020-11-15] MEDS: ENOXAPARIN 30 MG/0.3 ML SYRINGE SUBCUT SCH (08:50)
[2020-11-15] MEDS: AZITHROMYCIN 250 MG TABLET PO SCH (08:50)
[2020-11-15] MEDS: DEXAMETHASONE 10 MG/1 ML VIAL IV SCH (08:50)
[2020-11-15] MEDS: PANTOPRAZOLE 40 MG TABLET PO SCH (08:50)
[2020-11-15] MEDS ORDERED: ROSUVASTATIN 20 MG TABLET PO SCH (09:00)
[2020-11-15] MEDS ORDERED: AMOXICILLIN/CLAV 500 MG TABLET PO SCH (11:30)
== END 2020-11-15 14:07 | disposition home or self-care (01) | DRG 193 ==
LOC: EDUNIT# → N.ED 22:44 → N.EDINP 11-11 00:38 → SUATTDRO 11-11 00:38 → N.2E 11-11 03:08 → N.5E 11-14 20:08
PROVIDERS: ADMIT Internal Medicine; ATTEND Internal Medicine

== ENCOUNTER 2020-11-26 14:14 | Observation (INO) ==
[2020-11-26] MEDS ORDERED: ONDANSETRON 4 MG/2 ML VIAL IV STA (14:46)
[2020-11-26] MEDS ORDERED: HYDROmorphone 2 MG/1 ML VIAL IV STA (14:46)
[2020-11-26] MEDS ORDERED: PIPERACILLIN/TAZOBACTAM 2,250 MG in SODIUM CHLORIDE 0.9% 100 ML IV STA (14:55)
[2020-11-26 15:23] LABS: Basophils # 0.1 10*3/uL (0.0-0.2); Basophils % 0.6 % (0.0-0.8); Eosinophils # 0.4 10*3/uL (0.0-0.87); Eosinophils % 4.7 % (0.00-10.9); Hematocrit 26.9 VOL% (35.7-47.0); Immature Granulocytes % 2.8 %; Immature Granulocytes Absolute 0.23 #; Lymphocytes # 2.1 10*3/uL (1.4-4.0); Lymphocytes % 25.7 % (21.3-54.2); Mean Corpuscular HGB Conc 33.5 GM/DL (32-36); Mean Corpuscular Volume 93.1 FL (87-102); Mean Platelet Volume 10.1 FL (9.6-12.0); Monocytes % 6.6 % (1.7-12.7); Neutrophils % 59.6 % (38.7-73.9); Platelet Count 264 T/CUMM (130-400); Red Blood Count 2.89 MC/CUMM (3.8-5.5); Red Cell Distribution Width 13.2 % (9.3-17.3); White Blood Count 8.3 T/CUMM (4-12)
[2020-11-26 17:02] LABS: Albumin 1.4 G/DL (3.4-5.0); Bilirubin,Total 0.4 MG/DL (0.2-1.0); Calcium 7.2 MG/DL (8.5-10.1); Osmolality,Calculated 260.5 MOS/KG (273-304); Total Protein 6.9 G/DL (6.4-8.3)
[2020-11-26] MEDS ORDERED: DEXTROSE 50% 25 GM/50 ML VIAL IV ONE (18:20)
[2020-11-26] MEDS ORDERED: NICOTINE 21 MG/24 HR PATCH TRANSDERM PRN (18:25)
[2020-11-26] MEDS ORDERED: SIMETHICONE CHEW 125 MG TABLET PO PRN (18:25)
[2020-11-26] MEDS ORDERED: ONDANSETRON 4 MG/2 ML VIAL IV PRN (18:25)
[2020-11-26] MEDS ORDERED: hydrALAZINE 20 MG/1 ML VIAL IV PRN (18:25)
[2020-11-26] MEDS ORDERED: ZALEPLON 5 MG CAPSULE PO PRN (18:25)
[2020-11-26] MEDS ORDERED: CALCIUM CARBONATE CHEW 500 MG TABLET PO PRN (18:25)
[2020-11-26] MEDS ORDERED: GLUCAGON 1 MG VIAL IM PRN ×2 (18:25)
[2020-11-26] MEDS ORDERED: guaiFENesin/DM ER 600-30 MG TABLET PO PRN (18:25)
[2020-11-26] MEDS ORDERED: BISACODYL 5 MG TABLET PO PRN (18:25)
[2020-11-26] MEDS ORDERED: DEXTROSE 50% 25 GM/50 ML VIAL IV PRN ×2 (18:25)
[2020-11-26] MEDS ORDERED: PROMETHAZINE 25 MG TABLET PO PRN (18:25)
[2020-11-26] MEDS ORDERED: ALUMINUM/MAGNES/SIMETH MAX STR 30 ML UDCUP PO PRN (18:25)
[2020-11-26] MEDS ORDERED: ACETAMINOPHEN 325 MG TABLET PO PRN (18:25)
[2020-11-26] MEDS ORDERED: SILVER SULFADIAZINE 1% CREAM 25 GM TUBE TOP SCH (18:30)
[2020-11-26] MEDS ORDERED: SODIUM CHLORIDE 0.9% 1,000 ML IV SCH (18:30)
[2020-11-26] MEDS: HYDROmorphone 2 MG/1 ML VIAL IV PRN (22:27)
[2020-11-26] MEDS: cefTRIAXone 1,000 MG in SYRINGE 1 EACH IV SCH (22:27)
[2020-11-26] MEDS: hydrALAZINE 25 MG TABLET PO SCH (22:27)
[2020-11-26] MEDS: INSULIN LISPRO 100 UNIT/ML SUBCUT SCH (22:28)
[2020-11-26] MEDS: metroNIDAZOLE INJ 500 MG in PREMIX 1 EACH IV SCH (22:28)
[2020-11-27 01:22] LABS: Bilirubin,Urine Negative (Negative); Blood, Urine Small mg/dL (Negative); Glucose,Urine (UA) >=500 mg/dL (Negative); Ketones,Urine Negative (Negative); Mucus,Urine Occasional /LPF (Occasional); Nitrite,Urine Negative (Negative); Protein,Urine >=500 MG/DL; RBC,Urine 9 /HPF (0-4); Squamous Epithelial Cell,Urine Few /HPF (0-10); Urine Appearance CLOUDY (Clear); Urine Specific Gravity 1.045 (1.001-1.035); Urine Urobilinogen < 2.0 EU/DL (0.2-1.0); WBC,Urine 34 /HPF (0-6)
[2020-11-27 01:23] LABS: Urine Color Yellow (Yellow)
[2020-11-27] MEDS: metroNIDAZOLE INJ 500 MG in PREMIX 1 EACH IV SCH ×2 (04:20→12:39)
[2020-11-27 06:11] LABS: Basophils # 0.1 10*3/uL (0.0-0.2); Basophils % 0.9 % (0.0-0.8); Eosinophils # 0.2 10*3/uL (0.0-0.87); Eosinophils % 3.6 % (0.00-10.9); Hematocrit 25.9 VOL% (35.7-47.0); Hemoglobin 8.4 GM/DL (12.0-16.0); Immature Granulocytes % 3.3 %; Immature Granulocytes Absolute 0.21 #; Lymphocytes # 1.7 10*3/uL (1.4-4.0); Lymphocytes % 26.9 % (21.3-54.2); Mean Corpuscular HGB Conc 32.4 GM/DL (32-36); Mean Corpuscular Volume 95.2 FL (87-102); Mean Platelet Volume 9.9 FL (9.6-12.0); Monocytes % 8.7 % (1.7-12.7); Neutrophils % 56.6 % (38.7-73.9); Platelet Count 252 T/CUMM (130-400); Red Blood Count 2.72 MC/CUMM (3.8-5.5); Red Cell Distribution Width 13.3 % (9.3-17.3); White Blood Count 6.4 T/CUMM (4-12)
[2020-11-27 06:33] LABS: Eosinophils 3 % (0-10); Hypochromasia 1+; Lymphocytes 18 % (20-55); Microcytosis 1+; Platelet Estimate Adequate; Segmented Neutrophils 70 % (50-85); Total Cells Counted 100
[2020-11-27 06:40] LABS: Calcium 7.2 MG/DL (8.5-10.1); Osmolality,Calculated 268.2 MOS/KG (273-304)
[2020-11-27] MEDS: HYDROmorphone 2 MG/1 ML VIAL IV PRN ×4 (07:25→21:10)
[2020-11-27] MEDS: INSULIN LISPRO 100 UNIT/ML SUBCUT SCH ×4 (07:29→21:11)
[2020-11-27] MEDS ORDERED: INFLUENZA VIRUS VACCINE 0.5 ML SYRINGE IM ONE (09:00)
[2020-11-27] MEDS: SEVELAMER CARBONATE 800 MG TABLET PO SCH ×3 (09:53→16:30)
[2020-11-27] MEDS: PANTOPRAZOLE 40 MG TABLET PO SCH (09:53)
[2020-11-27] MEDS: MAGNESIUM OXIDE 400 MG TABLET PO SCH (09:53)
[2020-11-27] MEDS: LOSARTAN 50 MG TABLET PO SCH (09:54)
[2020-11-27] MEDS: hydrALAZINE 25 MG TABLET PO SCH ×2 (09:55→21:10)
[2020-11-27] MEDS: diphenhydrAMINE CAP 25 MG CAPSULE PO PRN (11:43)
[2020-11-27] MEDS ORDERED: HEPARIN 10,000 UNIT/10 ML VIAL IV PRN (15:09)
[2020-11-27] MEDS: cefTRIAXone 1,000 MG in SYRINGE 1 EACH IV SCH (21:10)
[2020-11-28] MEDS: diphenhydrAMINE CAP 25 MG CAPSULE PO PRN ×2 (00:20→05:52)
[2020-11-28] MEDS: HYDROmorphone 2 MG/1 ML VIAL IV PRN ×4 (02:11→18:21)
[2020-11-28 06:17] LABS: Basophils # 0.1 10*3/uL (0.0-0.2); Basophils % 0.8 % (0.0-0.8); Eosinophils # 0.2 10*3/uL (0.0-0.87); Eosinophils % 3.6 % (0.00-10.9); Hematocrit 26.2 VOL% (35.7-47.0); Hemoglobin 8.5 GM/DL (12.0-16.0); Immature Granulocytes % 2.1 %; Immature Granulocytes Absolute 0.13 #; Lymphocytes # 2.4 10*3/uL (1.4-4.0); Lymphocytes % 38.3 % (21.3-54.2); Mean Corpuscular HGB Conc 32.4 GM/DL (32-36); Mean Corpuscular Volume 96.3 FL (87-102); Neutrophils % 46.2 % (38.7-73.9); Platelet Count 271 T/CUMM (130-400); Red Blood Count 2.72 MC/CUMM (3.8-5.5); Red Cell Distribution Width 13.4 % (9.3-17.3); White Blood Count 6.3 T/CUMM (4-12)
[2020-11-28 06:35] LABS: Calcium 7.5 MG/DL (8.5-10.1); Osmolality,Calculated 267.1 MOS/KG (273-304)
[2020-11-28 07:07] LABS: Band Neutrophils 1 % (0-10); Eosinophils 2 % (0-10); Total Cells Counted 100
[2020-11-28 07:08] LABS: Hypochromasia 2+; Lymphocytes 38 % (20-55); Platelet Estimate Normal; Segmented Neutrophils 52 % (50-85)
[2020-11-28] MEDS: INSULIN LISPRO 100 UNIT/ML SUBCUT SCH ×3 (07:41→17:50)
[2020-11-28] MEDS: hydrALAZINE 25 MG TABLET PO SCH (09:45)
[2020-11-28] MEDS: LOSARTAN 50 MG TABLET PO SCH (09:46)
[2020-11-28] MEDS: SEVELAMER CARBONATE 800 MG TABLET PO SCH ×2 (09:46→17:50)
[2020-11-28] MEDS: MAGNESIUM OXIDE 400 MG TABLET PO SCH (09:46)
[2020-11-28] MEDS: PANTOPRAZOLE 40 MG TABLET PO SCH (09:46)
[2020-11-28 18:02] VITALS: BP 163/92
== END 2020-11-28 19:53 | disposition home or self-care (01) ==
LOC: EDUNIT# → EDBD → N.EDINP 14:14 → N.ED 14:14 → N.3E 20:03
PROVIDERS: ADMIT Emergency Medicine; ATTEND Emergency Medicine

== ENCOUNTER 2021-08-21 19:22 | Observation (INO) ==
[2021-08-21] MEDS ORDERED: PIPERACILLIN/TAZOBACTAM 2,250 MG in SODIUM CHLORIDE 0.9% 100 ML IV STA (20:46)
[2021-08-21] MEDS ORDERED: VANCOMYCIN INJ 1,000 MG in SODIUM CHLORIDE 0.9% 250 ML IV STA (20:46)
[2021-08-21] MEDS ORDERED: HYDROmorphone 2 MG/1 ML VIAL IV ONE (20:48)
[2021-08-21] MEDS ORDERED: ONDANSETRON 4 MG/2 ML VIAL IV STA (20:48)
[2021-08-21] MEDS ORDERED: PIPERACILLIN/TAZOBACTAM 3,375 MG in SODIUM CHLORIDE 0.9% 100 ML IV STA (20:52)
[2021-08-21 20:59] LABS: Basophils # 0.1 10*3/uL (0.0-0.2); Basophils % 0.5 % (0.0-0.8); Eosinophils # 0.4 10*3/uL (0.0-0.87); Eosinophils % 3.2 % (0.00-10.9); Hematocrit 33.1 VOL% (35.7-47.0); Hemoglobin 10.9 GM/DL (12.0-16.0); Immature Granulocytes % 0.3 %; Immature Granulocytes Absolute 0.03 #; Lymphocytes % 36.2 % (21.3-54.2); Mean Corpuscular HGB Conc 32.9 GM/DL (32-36); Mean Corpuscular Volume 96.5 FL (87-102); Mean Platelet Volume 10.4 FL (9.6-12.0); Monocytes % 4.9 % (1.7-12.7); Neutrophils % 54.9 % (38.7-73.9); Platelet Count 243 T/CUMM (130-400); Red Blood Count 3.43 MC/CUMM (3.8-5.5); Red Cell Distribution Width 13.7 % (9.3-17.3); White Blood Count 10.9 T/CUMM (4-12)
[2021-08-21 21:11] LABS: Alanine Aminotransferase 20 U/L (13-56); Albumin 2.2 G/DL (3.4-5.0); Alkaline Phosphatase 171 U/L (45-117); Aspartate Amino Transferase 19 U/L (0-37); Bilirubin,Total < 0.39 MG/DL (0.20-1.00); Blood Urea Nitrogen 23 MG/DL (7-18); Calcium 8.2 MG/DL (8.5-10.1); Carbon Dioxide 31 MMOL/L (21-32); Estimated Glom Filtration Rate 12 ML/MIN; Glucose 130 MG/DL (74-106); Osmolality,Calculated 288.1 MOS/KG (273-304); Potassium 3.5 MMOL/L (3.5-5.1); Sodium 142 MMOL/L (136-145); Total Protein 6.5 G/DL (6.4-8.2)
[2021-08-21] MEDS ORDERED: GLUCAGON 1 MG VIAL IM PRN (22:51)
[2021-08-21] MEDS ORDERED: HYDROmorphone 2 MG/1 ML VIAL IV PRN (22:51)
[2021-08-21] MEDS ORDERED: ONDANSETRON 4 MG/2 ML VIAL IV PRN (22:51)
[2021-08-21] MEDS ORDERED: DEXTROSE 50% 25 GM/50 ML VIAL IV PRN (22:51)
[2021-08-21] MEDS ORDERED: ACETAMINOPHEN 325 MG TABLET PO PRN (22:51)
[2021-08-22] MEDS: INSULIN REGULAR 100 UNIT/ML SUBCUT SCH ×3 (01:15→12:43)
[2021-08-22] MEDS ORDERED: BUPIVACAINE MPF 0.25% 30 ML VIAL ONE (07:08)
[2021-08-22] MEDS ORDERED: LIDOCAINE 1%/EPI INJ 20 ML VIAL ONE (07:08)
[2021-08-22] MEDS ORDERED: ROCURONIUM 50 MG/5 ML VIAL IV ONE (07:27)
[2021-08-22] MEDS ORDERED: SUCCINYLCHOLINE 200 MG/10 ML VIAL ONE (07:27)
[2021-08-22] MEDS ORDERED: propofoL 200 MG/20 ML VIAL IV ONE (07:27)
[2021-08-22] MEDS ORDERED: fentaNYL 100 MCG/2 ML VIAL ONE (07:27)
[2021-08-22] MEDS ORDERED: SEVOFLURANE 1 UNIT/15 MINUTE INH ONE (07:27)
[2021-08-22] MEDS ORDERED: LIDOCAINE 2% 5 ML VIAL ONE (07:27)
[2021-08-22] MEDS ORDERED: PIPERACILLIN/TAZOBACTAM 3,375 MG in SODIUM CHLORIDE 0.9% 100 ML IV SCH (08:00)
[2021-08-22] MEDS ORDERED: LACTATED RINGERS 1,000 ML IV SCH (08:30)
[2021-08-22] MEDS ORDERED: GABAPENTIN 300 MG CAPSULE PO SCH (09:00)
[2021-08-22] MEDS ORDERED: ASPIRIN EC 81 MG TABLET PO SCH (09:00)
[2021-08-22] MEDS ORDERED: hydrALAZINE 25 MG TABLET PO SCH (09:00)
[2021-08-22] MEDS ORDERED: LOSARTAN 50 MG TABLET PO SCH (09:00)
[2021-08-22] MEDS ORDERED: INSULIN NPH/REGULAR 70/30 100 UNIT/ML SUBCUT SCH ×2 (09:00→21:00)
[2021-08-22] MEDS ORDERED: PANTOPRAZOLE 40 MG TABLET PO SCH (09:00)
[2021-08-22] MEDS ORDERED: lisinopriL 10 MG TABLET PO SCH (09:00)
[2021-08-22] MEDS: HYDROmorphone 2 MG/1 ML VIAL IV PRN ×2 (09:10→09:20)
[2021-08-22] MEDS ORDERED: ONDANSETRON 4 MG/2 ML VIAL IV PRN (09:14)
[2021-08-22] MEDS ORDERED: INFLUENZA VIRUS VACCINE 0.5 ML SYRINGE IM ONE (11:29)
[2021-08-22 12:52] VITALS: BP 111/73
== END 2021-08-22 16:15 | disposition home or self-care (01) ==
LOC: EDUNIT# → EDBD → N.ED 19:22 → N.EDINP 19:22 → N.3E 22:21
PROVIDERS: ADMIT Surgery; ATTEND Surgery

== ENCOUNTER 2021-11-22 19:30 | Observation (INO) ==
[2021-11-23] MEDS ORDERED: hydrALAZINE 20 MG/1 ML VIAL IV PRN (01:55)
[2021-11-23] MEDS ORDERED: GLUCAGON 1 MG VIAL IM PRN (01:55)
[2021-11-23] MEDS ORDERED: ACETAMINOPHEN 325 MG TABLET PO PRN (01:55)
[2021-11-23] MEDS ORDERED: DEXTROSE 50% 25 GM/50 ML SYRINGE IV PRN (01:55)
[2021-11-23] MEDS ORDERED: MORPHINE 2 MG/1 ML SYRINGE IV PRN (02:14)
[2021-11-23] MEDS ORDERED: ALBUTEROL/IPRATROPIUM 3 ML NEB RESP TX SCH (02:30)
[2021-11-23 02:41] LABS: Basophils % 0.3 % (0.0-0.8); Eosinophils # 0.1 10*3/uL (0.0-0.87); Eosinophils % 1.2 % (0.00-10.9); Hematocrit 27.9 VOL% (35.7-47.0); Hemoglobin 8.7 GM/DL (12.0-16.0); Immature Granulocytes % 0.6 %; Immature Granulocytes Absolute 0.06 #; Lymphocytes # 3.2 10*3/uL (1.4-4.0); Lymphocytes % 33.2 % (21.3-54.2); Mean Corpuscular HGB Conc 31.2 GM/DL (32-36); Mean Corpuscular Volume 102.6 FL (87-102); Mean Platelet Volume 10.7 FL (9.6-12.0); Monocytes % 6.6 % (1.7-12.7); Neutrophils % 58.1 % (38.7-73.9); Platelet Count 182 T/CUMM (130-400); Red Blood Count 2.72 MC/CUMM (3.8-5.5); Red Cell Distribution Width 14.1 % (9.3-17.3); White Blood Count 9.7 T/CUMM (4-12)
[2021-11-23] MEDS: methylPREDNISolone SOD SUC 40 MG/1 ML VIAL IV SCH ×2 (02:53→16:34)
[2021-11-23 03:08] LABS: Alanine Aminotransferase 30 U/L (13-56); Albumin 1.8 G/DL (3.4-5.0); Alkaline Phosphatase 155 U/L (45-117); Aspartate Amino Transferase 31 U/L (0-37); Bilirubin,Total < 0.39 MG/DL (0.20-1.00); Blood Urea Nitrogen 42 MG/DL (7-18); Calcium 7.3 MG/DL (8.5-10.1); Carbon Dioxide 19 MMOL/L (21-32); Estimated Glom Filtration Rate 7 ML/MIN; Glucose 63 MG/DL (74-106); HDL Cholesterol 54 MG/DL (40-60); Osmolality,Calculated 298.6 MOS/KG (273-304); Potassium 4.6 MMOL/L (3.5-5.1); Risk Ratio 1.78; Sodium 146 MMOL/L (136-145); Total Protein 5.8 G/DL (6.4-8.2); Triglycerides 109 MG/DL (2-150); VLDL Cholesterol 21.8 MG/DL
[2021-11-23 03:15] LABS: Ferritin 958.1 ng/mL (8-252)
[2021-11-23] MEDS ORDERED: MAGNESIUM SULF RIDER 2 GM/50 ML PREMIX IV ONE ×2 (04:51→07:48)
[2021-11-23] MEDS ORDERED: ENOXAPARIN 100 MG/ML SYRINGE SUBCUT ONE (06:43)
[2021-11-23] MEDS: INSULIN LISPRO 100 UNIT/ML SUBCUT SCH ×4 (07:47→21:39)
[2021-11-23] MEDS: HEPARIN 5,000 UNIT/1 ML VIAL SUBCUT SCH ×2 (08:40→21:38)
[2021-11-23] MEDS: hydrALAZINE 25 MG TABLET PO SCH ×2 (08:40→21:40)
[2021-11-23] MEDS: GABAPENTIN 300 MG CAPSULE PO SCH ×2 (08:41→21:40)
[2021-11-23] MEDS: ASPIRIN EC 81 MG TABLET PO SCH (08:41)
[2021-11-23] MEDS: lisinopriL 10 MG TABLET PO SCH (08:41)
[2021-11-23] MEDS: LOSARTAN 50 MG TABLET PO SCH (08:41)
[2021-11-23] MEDS ORDERED: HEPARIN 5,000 UNIT/1 ML VIAL SUBCUT SCH (09:00)
[2021-11-23] MEDS ORDERED: ALBUTEROL/IPRATROPIUM 3 ML NEB RESP TX PRN (10:38)
[2021-11-23] MEDS: ALBUTEROL/IPRATROPIUM 3 ML NEB RESP TX SCH ×4 (13:15→23:15)
[2021-11-23] MEDS ORDERED: cefTRIAXone 1,000 MG in SODIUM CHLORIDE 0.9% 100 ML IV SCH (16:00)
[2021-11-23] MEDS ORDERED: AZITHROMYCIN INJ 500 MG in SODIUM CHLORIDE 0.9% 250 ML IV SCH (16:00)
[2021-11-23] MEDS: guaiFENesin 200 MG/10 ML UDCUP PO PRN (18:30)
[2021-11-23] MEDS: BENZONATATE 100 MG CAPSULE PO PRN (18:30)
[2021-11-23] MEDS ORDERED: KETOROLAC 15 MG/1 ML VIAL IV ONE (22:20)
[2021-11-24] MEDS: methylPREDNISolone SOD SUC 40 MG/1 ML VIAL IV SCH (01:39)
[2021-11-24] MEDS: ALBUTEROL/IPRATROPIUM 3 ML NEB RESP TX SCH ×4 (04:30→14:15)
[2021-11-24] MEDS: INSULIN LISPRO 100 UNIT/ML SUBCUT SCH ×2 (08:18→11:59)
[2021-11-24] MEDS: LOSARTAN 50 MG TABLET PO SCH (08:19)
[2021-11-24] MEDS: BENZONATATE 100 MG CAPSULE PO PRN (08:19)
[2021-11-24] MEDS: GABAPENTIN 300 MG CAPSULE PO SCH (08:19)
[2021-11-24] MEDS: hydrALAZINE 25 MG TABLET PO SCH (08:20)
[2021-11-24] MEDS: HEPARIN 5,000 UNIT/1 ML VIAL SUBCUT SCH (08:20)
[2021-11-24] MEDS: guaiFENesin 200 MG/10 ML UDCUP PO PRN (08:20)
[2021-11-24] MEDS: lisinopriL 10 MG TABLET PO SCH (08:20)
[2021-11-24] MEDS: ASPIRIN EC 81 MG TABLET PO SCH (08:20)
[2021-11-24] MEDS ORDERED: INSULIN NPH/REGULAR 70/30 100 UNIT/ML SUBCUT SCH ×2 (09:00→21:00)
[2021-11-24 09:12] LABS: Basophils % 0.2 % (0.0-0.8); Hematocrit 28.5 VOL% (35.7-47.0); Hemoglobin 9.3 GM/DL (12.0-16.0); Immature Granulocytes % 1.2 %; Immature Granulocytes Absolute 0.08 #; Lymphocytes # 1.2 10*3/uL (1.4-4.0); Lymphocytes % 18.2 % (21.3-54.2); Mean Corpuscular HGB Conc 32.6 GM/DL (32-36); Mean Corpuscular Volume 99.3 FL (87-102); Mean Platelet Volume 10.9 FL (9.6-12.0); Monocytes % 2.5 % (1.7-12.7); Neutrophils % 77.9 % (38.7-73.9); Platelet Count 183 T/CUMM (130-400); Red Blood Count 2.87 MC/CUMM (3.8-5.5); Red Cell Distribution Width 13.2 % (9.3-17.3); White Blood Count 6.5 T/CUMM (4-12)
[2021-11-24 09:33] LABS: Calcium 8.1 MG/DL (8.5-10.1); Ferritin 1156.9 ng/mL (8-252); Osmolality,Calculated 293.5 MOS/KG (273-304); Potassium 5.4 MMOL/L (3.5-5.1)
[2021-11-24] MEDS ORDERED: AZITHROMYCIN INJ 500 MG in SODIUM CHLORIDE 0.9% 250 ML IV SCH (10:46)
[2021-11-24] MEDS ORDERED: CEFUROXIME 500 MG TABLET PO SCH (11:30)
[2021-11-24] MEDS ORDERED: AZITHROMYCIN 250 MG TABLET PO SCH (11:30)
[2021-11-24 12:07] VITALS: BP 134/63
[2021-11-24] MEDS ORDERED: INSULIN LISPRO 100 UNIT/ML SUBCUT ONE (13:12)
== END 2021-11-24 15:00 | disposition home health service (06) ==
LOC: INTOOBSV 11-23 01:12 → N.3E 11-23 01:12
PROVIDERS: ADMIT Internal Medicine; ATTEND Internal Medicine

== ENCOUNTER 2022-06-27 00:06 | Inpatient (IN) ==
[2022-06-27] MEDS ORDERED: methylPREDNISolone SOD SUC 125 MG/2 ML VIAL IV STA (00:20)
[2022-06-27] MEDS ORDERED: ONDANSETRON 4 MG/2 ML VIAL IV STA (00:20)
[2022-06-27] MEDS ORDERED: ALBUTEROL/IPRATROPIUM 3 ML NEB RESP TX STA (00:20)
[2022-06-27] MEDS ORDERED: FUROSEMIDE 100 MG/10 ML VIAL IV STA (00:20)
[2022-06-27 01:13] LABS: Basophils % 0.3 % (0.0-0.8); Eosinophils % 0.3 % (0.00-10.9); Hematocrit 29.5 VOL% (35.7-47.0); Hemoglobin 9.7 GM/DL (12.0-16.0); Immature Granulocytes % 1.5 %; Immature Granulocytes Absolute 0.19 #; Lymphocytes # 3.8 10*3/uL (1.4-4.0); Lymphocytes % 30.1 % (21.3-54.2); Mean Corpuscular HGB Conc 32.9 GM/DL (32-36); Mean Corpuscular Volume 99.3 FL (87-102); Mean Platelet Volume 10.8 FL (9.6-12.0); Monocytes # 0.6 10*3/uL (0.11-0.8); Monocytes % 4.6 % (1.7-12.7); Neutrophils % 63.2 % (38.7-73.9); Platelet Count 163 T/CUMM (130-400); Red Blood Count 2.97 MC/CUMM (3.8-5.5); Red Cell Distribution Width 14.8 % (9.3-17.3); White Blood Count 12.6 T/CUMM (4-12)
[2022-06-27 01:22] LABS: INR 0.9; PT Patient Result 10.1 SECS (10.1-12.1)
[2022-06-27 01:39] LABS: Alanine Aminotransferase 18 U/L (13-56); Albumin 2.5 G/DL (3.4-5.0); Alkaline Phosphatase 308 U/L (45-117); Aspartate Amino Transferase 12 U/L (0-37); Bilirubin,Total < 0.39 MG/DL (0.20-1.00); Blood Urea Nitrogen 78 MG/DL (7-18); Calcium 6.8 MG/DL (8.5-10.1); Carbon Dioxide 16 MMOL/L (21-32); Chloride 106 MMOL/L (98-107); Glucose 429 MG/DL (74-106); Osmolality,Calculated 315.7 MOS/KG (273-304); Sodium 138 MMOL/L (136-145); Total Protein 6.4 G/DL (6.4-8.2)
[2022-06-27] MEDS ORDERED: INSULIN REGULAR 100 UNIT/ML SUBCUT STA ×2 (01:47→04:12)
[2022-06-27 02:06] LABS: ABG Base Excess -11.7 MMOL/L (-2.5-2.5); ABG HCO3 15.2 MMOL/L (20-26); ABG Oxygen Saturation 95.5 % (95-100); ABG PCO2 38.2 MM HG (35-48); ABG PH 7.215 (7.35-7.45); ABG PO2 83.6 MM HG (80-95); ABG TCO2 14.5 MMOL/L (23-27)
[2022-06-27] MEDS ORDERED: GLUCAGON 1 MG VIAL IM PRN (04:17)
[2022-06-27] MEDS ORDERED: hydrALAZINE 20 MG/1 ML VIAL IV PRN (04:17)
[2022-06-27] MEDS ORDERED: ALBUTEROL 2.5 MG/3 ML NEB RESP TX PRN (04:17)
[2022-06-27] MEDS ORDERED: ALUMINUM/MAGNES/SIMETH MAX STR 30 ML UDCUP PO PRN (04:17)
[2022-06-27] MEDS ORDERED: DEXTROSE 10% 250 ML BAG IV PRN (04:29)
[2022-06-27 05:49] LABS: Mucus,Urine Occasional /LPF (Occasional); Protein,Urine >=300 mg/dL (Negative); RBC,Urine 4 /HPF (0-4); Squamous Epithelial Cell,Urine Occasional /HPF (0-10); Urine Appearance Clear (Clear); Urine Color Light Yellow (Yellow); Urine pH 6.5 (4.5-8.0)
[2022-06-27 05:50] LABS: Bilirubin,Urine Negative (Negative); Blood, Urine Moderate mg/dL (Negative); Glucose,Urine (UA) >1000 mg/dL (Negative); Ketones,Urine Negative (Negative); Nitrite,Urine Negative (Negative); Urine Urobilinogen 0.2 eU/dL (<2.0)
[2022-06-27] MEDS: ACETAMINOPHEN 325 MG TABLET PO PRN ×2 (06:44→13:41)
[2022-06-27] MEDS ORDERED: lisinopriL 10 MG TABLET PO SCH (09:00)
[2022-06-27] MEDS: HEPARIN 5,000 UNIT/1 ML VIAL SUBCUT SCH ×2 (09:05→20:33)
[2022-06-27] MEDS: ONDANSETRON 4 MG/2 ML VIAL IV PRN (09:06)
[2022-06-27] MEDS: ASPIRIN EC 81 MG TABLET PO SCH (09:07)
[2022-06-27] MEDS: CLOPIDOGREL 75 MG TABLET PO SCH (09:07)
[2022-06-27] MEDS: PANTOPRAZOLE 40 MG TABLET PO SCH (09:07)
[2022-06-27] MEDS: LOSARTAN 50 MG TABLET PO SCH (09:14)
[2022-06-27] MEDS: INSULIN REGULAR 100 UNIT/ML SUBCUT SCH ×4 (09:15→20:32)
[2022-06-27] MEDS: BENZONATATE 100 MG CAPSULE PO PRN (18:26)
[2022-06-28] MEDS: ACETAMINOPHEN 325 MG TABLET PO PRN (03:15)
[2022-06-28] MEDS ORDERED: diphenhydrAMINE CAP 25 MG CAPSULE PO PRN (05:01)
[2022-06-28 05:38] LABS: Basophils % 0.2 % (0.0-0.8); Eosinophils % 0.2 % (0.00-10.9); Hematocrit 27.3 VOL% (35.7-47.0); Hemoglobin 9.3 GM/DL (12.0-16.0); Immature Granulocytes % 0.7 %; Immature Granulocytes Absolute 0.08 #; Lymphocytes # 2.6 10*3/uL (1.4-4.0); Lymphocytes % 21.4 % (21.3-54.2); Mean Corpuscular HGB Conc 34.1 GM/DL (32-36); Mean Corpuscular Volume 96.5 FL (87-102); Mean Platelet Volume 11.3 FL (9.6-12.0); Monocytes # 0.7 10*3/uL (0.11-0.8); Monocytes % 5.6 % (1.7-12.7); Neutrophils % 71.9 % (38.7-73.9); Platelet Count 165 T/CUMM (130-400); Red Blood Count 2.83 MC/CUMM (3.8-5.5); Red Cell Distribution Width 14.6 % (9.3-17.3); White Blood Count 12.1 T/CUMM (4-12)
[2022-06-28 05:55] LABS: Total Protein 5.8 G/DL (6.4-8.2)
[2022-06-28 06:15] LABS: Calcium 7.6 MG/DL (8.5-10.1); Osmolality,Calculated 292.4 MOS/KG (273-304); Potassium 3.3 MMOL/L (3.5-5.1)
[2022-06-28] MEDS: INSULIN REGULAR 100 UNIT/ML SUBCUT SCH ×4 (09:12→20:50)
[2022-06-28] MEDS: ASPIRIN EC 81 MG TABLET PO SCH (09:13)
[2022-06-28] MEDS: PANTOPRAZOLE 40 MG TABLET PO SCH (09:13)
[2022-06-28] MEDS: CLOPIDOGREL 75 MG TABLET PO SCH (09:13)
[2022-06-28] MEDS: LOSARTAN 50 MG TABLET PO SCH (09:14)
[2022-06-28] MEDS: HEPARIN 5,000 UNIT/1 ML VIAL SUBCUT SCH ×2 (09:14→20:51)
[2022-06-28] MEDS ORDERED: methylPREDNISolone SOD SUC 40 MG/1 ML VIAL IV SCH (11:30)
[2022-06-28] MEDS: ONDANSETRON 4 MG/2 ML VIAL IV PRN (23:16)
[2022-06-29] MEDS ORDERED: MORPHINE 2 MG/1 ML SYRINGE IV ONE (00:30)
[2022-06-29] MEDS: BENZONATATE 100 MG CAPSULE PO PRN (02:58)
[2022-06-29 05:22] LABS: Basophils % 0.3 % (0.0-0.8); Eosinophils # 0.1 10*3/uL (0.0-0.87); Eosinophils % 0.8 % (0.00-10.9); Hematocrit 30.2 VOL% (35.7-47.0); Immature Granulocytes % 0.8 %; Lymphocytes # 3.2 10*3/uL (1.4-4.0); Lymphocytes % 23.9 % (21.3-54.2); Mean Corpuscular HGB Conc 33.1 GM/DL (32-36); Mean Corpuscular Volume 97.4 FL (87-102); Monocytes # 0.7 10*3/uL (0.11-0.8); Monocytes % 5.4 % (1.7-12.7); Neutrophils % 68.8 % (38.7-73.9); Platelet Count 191 T/CUMM (130-400); Red Cell Distribution Width 14.6 % (9.3-17.3); White Blood Count 13.2 T/CUMM (4-12)
[2022-06-29 05:47] LABS: Calcium 8.4 MG/DL (8.5-10.1); Osmolality,Calculated 280.8 MOS/KG (273-304); Potassium 3.4 MMOL/L (3.5-5.1)
[2022-06-29] MEDS: INSULIN REGULAR 100 UNIT/ML SUBCUT SCH ×2 (08:58→12:31)
[2022-06-29] MEDS: LOSARTAN 50 MG TABLET PO SCH (10:31)
[2022-06-29] MEDS: CLOPIDOGREL 75 MG TABLET PO SCH (10:31)
[2022-06-29] MEDS: HEPARIN 5,000 UNIT/1 ML VIAL SUBCUT SCH (10:31)
[2022-06-29] MEDS: PANTOPRAZOLE 40 MG TABLET PO SCH (10:31)
[2022-06-29] MEDS: ASPIRIN EC 81 MG TABLET PO SCH (10:31)
[2022-06-29] MEDS: ONDANSETRON 4 MG/2 ML VIAL IV PRN (12:32)
[2022-06-29 12:44] VITALS: BP 140/68
[2022-06-29] MEDS ORDERED: predniSONE 20 MG TABLET PO SCH (14:00)
[2022-06-30 07:45] LABS: Immunoglobulin A (Chem) 240 MG/DL (70-400); Immunoglobulin G (Chem) 1230 MG/DL (700-1600); Immunoglobulin M (Chem) 32 MG/DL (40-230); Total Protein (Chem) 5.8 G/DL (6.4-8.3)
[2022-06-30 09:00] LABS: Albumin (SPE) 2.9 G/DL (3.2-5.3); Albumin (SPE) Rel % 49.8 %; Alpha 1 (SPE) 0.2 G/DL (0.1-0.4); Alpha 1 (SPE) Rel % 4.3 %; Alpha 2 (SPE) 0.8 G/DL (0.4-1.0); Alpha 2 (SPE) Rel % 13.7 %; Beta (SPE) 0.7 G/DL (0.5-1.1); Beta (SPE) Rel % 11.5 %; Gamma (SPE) 1.2 G/DL (0.7-1.7); Gamma (SPE) Rel % 20.7 %
[2022-07-01 15:16] LABS: Kappa Free Light Chain 18.7 mg/dL; Lambda Free Light Chain 16.9 mg/dL
== END 2022-06-29 17:25 | disposition left against medical advice (07) | DRG 640 ==
LOC: EDBD → EDUNIT# → N.EDINP 00:06 → N.ED 00:06 → SUATTDRO 04:17 → N.2W 05:17 → N.3E 06-28 21:23
PROVIDERS: ADMIT Internal Medicine; ATTEND Internal Medicine

== ENCOUNTER 2022-10-28 13:42 | Observation (INO) ==
[2022-10-28 14:14] LABS: Basophils # 0.1 10*3/uL (0.0-0.2); Basophils % 0.7 % (0.0-0.8); Eosinophils # 0.6 10*3/uL (0.0-0.87); Eosinophils % 6.6 % (0.00-10.9); Hemoglobin 9.6 GM/DL (12.0-16.0); Immature Granulocytes % 0.7 %; Immature Granulocytes Absolute 0.06 #; Lymphocytes % 36.3 % (21.3-54.2); Mean Corpuscular HGB Conc 33.1 GM/DL (32-36); Mean Corpuscular Volume 102.8 FL (87-102); Mean Platelet Volume 10.4 FL (9.6-12.0); Monocytes # 0.5 10*3/uL (0.11-0.8); Monocytes % 5.4 % (1.7-12.7); Neutrophils % 50.3 % (38.7-73.9); Platelet Count 193 T/CUMM (130-400); Red Blood Count 2.82 MC/CUMM (3.8-5.5); Red Cell Distribution Width 13.9 % (9.3-17.3); White Blood Count 8.3 T/CUMM (4-12)
[2022-10-28 14:40] LABS: Alanine Aminotransferase 12 U/L (13-56); Albumin 2.4 G/DL (3.4-5.0); Alkaline Phosphatase 119 U/L (45-117); Aspartate Amino Transferase 10 U/L (0-37); Bilirubin,Total < 0.39 MG/DL (0.20-1.00); Blood Urea Nitrogen 29 MG/DL (7-18); Calcium 7.7 MG/DL (8.5-10.1); Carbon Dioxide 30 MMOL/L (21-32); Chloride 105 MMOL/L (98-107); Glucose 105 MG/DL (74-106); Osmolality,Calculated 282.5 MOS/KG (273-304); Potassium 4.1 MMOL/L (3.5-5.1); Sodium 139 MMOL/L (136-145); Total Protein 5.8 G/DL (6.4-8.2)
[2022-10-28] MEDS ORDERED: ONDANSETRON 4 MG/2 ML VIAL IV STA (15:00)
[2022-10-28] MEDS ORDERED: HYDROmorphone 1 MG/1 ML SYRINGE IV STA (15:00)
[2022-10-28] MEDS ORDERED: ACETAMINOPHEN 325 MG TABLET PO PRN (15:18)
[2022-10-28] MEDS ORDERED: ONDANSETRON 4 MG/2 ML VIAL IV PRN (15:18)
[2022-10-28] MEDS ORDERED: GLUCAGON 1 MG VIAL IM PRN (15:23)
[2022-10-28] MEDS ORDERED: DEXTROSE 10% 250 ML BAG IV PRN (15:28)
[2022-10-28] MEDS ORDERED: SIMETHICONE CHEW 125 MG TABLET PO PRN (15:32)
[2022-10-28] MEDS ORDERED: INSULIN NPH/REG 70/30 100 UNIT/ML SUBCUT SCH (21:00)
[2022-10-28] MEDS: INSULIN LISPRO 100 UNIT/ML SUBCUT SCH (21:03)
[2022-10-28] MEDS: MORPHINE 2 MG/1 ML SYRINGE IV PRN (21:04)
[2022-10-28] MEDS: DOCUSATE SODIUM 100 MG CAPSULE PO SCH (21:04)
[2022-10-28] MEDS: INSULIN NPH/REG 70/30 100 UNIT/ML SUBCUT SCH (21:05)
[2022-10-29] MEDS: INSULIN LISPRO 100 UNIT/ML SUBCUT SCH ×5 (00:25→21:25)
[2022-10-29] MEDS: MORPHINE 2 MG/1 ML SYRINGE IV PRN ×4 (00:54→21:25)
[2022-10-29 06:16] LABS: Basophils # 0.1 10*3/uL (0.0-0.2); Basophils % 0.6 % (0.0-0.8); Eosinophils # 0.5 10*3/uL (0.0-0.87); Eosinophils % 6.1 % (0.00-10.9); Hematocrit 32.1 VOL% (35.7-47.0); Hemoglobin 10.2 GM/DL (12.0-16.0); Immature Granulocytes % 0.5 %; Immature Granulocytes Absolute 0.04 #; Lymphocytes # 3.1 10*3/uL (1.4-4.0); Mean Corpuscular HGB Conc 31.8 GM/DL (32-36); Mean Corpuscular Volume 105.9 FL (87-102); Mean Platelet Volume 10.4 FL (9.6-12.0); Monocytes # 0.4 10*3/uL (0.11-0.8); Monocytes % 5.2 % (1.7-12.7); Neutrophils % 50.6 % (38.7-73.9); Platelet Count 200 T/CUMM (130-400); Red Blood Count 3.03 MC/CUMM (3.8-5.5); Red Cell Distribution Width 13.7 % (9.3-17.3); White Blood Count 8.2 T/CUMM (4-12)
[2022-10-29 06:42] LABS: Alanine Aminotransferase 17 U/L (13-56); Albumin 2.6 G/DL (3.4-5.0); Alkaline Phosphatase 121 U/L (45-117); Aspartate Amino Transferase 14 U/L (0-37); Bilirubin,Total < 0.39 MG/DL (0.20-1.00); Blood Urea Nitrogen 20 MG/DL (7-18); Carbon Dioxide 30 MMOL/L (21-32); Chloride 102 MMOL/L (98-107); Cholesterol 116 MG/DL (50-200); Glucose 151 MG/DL (74-106); HDL Cholesterol 38 MG/DL (40-60); Osmolality,Calculated 284.4 MOS/KG (273-304); Potassium 4.9 MMOL/L (3.5-5.1); Risk Ratio 3.05; Sodium 140 MMOL/L (136-145); Total Protein 6.5 G/DL (6.4-8.2); Triglycerides 246 MG/DL (2-150); VLDL Cholesterol 49.2 MG/DL
[2022-10-29] MEDS: ASPIRIN EC 81 MG TABLET PO SCH (08:09)
[2022-10-29] MEDS: CLOPIDOGREL 75 MG TABLET PO SCH (08:10)
[2022-10-29] MEDS: DOCUSATE SODIUM 100 MG CAPSULE PO SCH ×2 (08:10→21:24)
[2022-10-29] MEDS: GABAPENTIN 300 MG CAPSULE PO SCH ×2 (08:10→11:36)
[2022-10-29] MEDS ORDERED: INSULIN NPH/REG 70/30 100 UNIT/ML SUBCUT SCH (09:00)
[2022-10-29] MEDS: INSULIN NPH/REG 70/30 100 UNIT/ML SUBCUT SCH ×2 (09:42→21:26)
[2022-10-29] MEDS: FLUTICASONE/SALMETEROL 100-50 DISKUS 14 DOSE INH SCH ×2 (10:49→21:24)
[2022-10-29] MEDS: lisinopriL 10 MG TABLET PO SCH (10:49)
[2022-10-29] MEDS ORDERED: ATORVASTATIN 40 MG TABLET PO SCH (21:00)
[2022-10-29] MEDS ORDERED: GABAPENTIN 300 MG CAPSULE PO SCH (21:00)
[2022-10-30] MEDS: MORPHINE 2 MG/1 ML SYRINGE IV PRN ×4 (01:44→14:00)
[2022-10-30 05:34] LABS: Basophils # 0.1 10*3/uL (0.0-0.2); Basophils % 0.7 % (0.0-0.8); Eosinophils # 0.4 10*3/uL (0.0-0.87); Eosinophils % 6.1 % (0.00-10.9); Hematocrit 31.1 VOL% (35.7-47.0); Hemoglobin 10.2 GM/DL (12.0-16.0); Immature Granulocytes % 0.4 %; Immature Granulocytes Absolute 0.03 #; Lymphocytes # 3.3 10*3/uL (1.4-4.0); Lymphocytes % 48.3 % (21.3-54.2); Mean Corpuscular HGB Conc 32.8 GM/DL (32-36); Mean Corpuscular Volume 102.6 FL (87-102); Mean Platelet Volume 10.6 FL (9.6-12.0); Monocytes # 0.5 10*3/uL (0.11-0.8); Monocytes % 7.7 % (1.7-12.7); Neutrophils % 36.8 % (38.7-73.9); Platelet Count 186 T/CUMM (130-400); Red Blood Count 3.03 MC/CUMM (3.8-5.5); Red Cell Distribution Width 13.3 % (9.3-17.3); White Blood Count 6.9 T/CUMM (4-12)
[2022-10-30] MEDS ORDERED: PANTOPRAZOLE 40 MG TABLET PO SCH (06:00)
[2022-10-30 06:01] LABS: Eosinophils 7 % (0-10); Hypochromia Slight; Lymphocytes 37 % (20-55); Microcytosis Slight; Platelet Estimate Adequate; Total Cells Counted 100
[2022-10-30 06:02] LABS: Folate 13.83 NG/ML (5.38-24.0)
[2022-10-30 06:03] LABS: Calcium 8.2 MG/DL (8.5-10.1); Free T4 (Free Thyroxine) 0.99 NG/DL (0.76-1.46); Osmolality,Calculated 273.1 MOS/KG (273-304); Potassium 4.2 MMOL/L (3.5-5.1); Thyroid Stimulating Hormone 2.7 uIU/ml (0.358-3.74)
[2022-10-30] MEDS ORDERED: LEVOTHYROXINE 125 MCG TABLET PO SCH (06:30)
[2022-10-30] MEDS: INSULIN LISPRO 100 UNIT/ML SUBCUT SCH ×2 (08:15→12:22)
[2022-10-30 08:35] VITALS: BP 103/79
[2022-10-30] MEDS: GABAPENTIN 300 MG CAPSULE PO SCH ×2 (12:22→12:23)
[2022-10-30] MEDS: FLUTICASONE/SALMETEROL 100-50 DISKUS 14 DOSE INH SCH (12:23)
[2022-10-30] MEDS: INSULIN NPH/REG 70/30 100 UNIT/ML SUBCUT SCH (12:23)
[2022-10-30] MEDS: DOCUSATE SODIUM 100 MG CAPSULE PO SCH (12:23)
[2022-10-30] MEDS: ASPIRIN EC 81 MG TABLET PO SCH (12:23)
[2022-10-30] MEDS: lisinopriL 10 MG TABLET PO SCH (12:24)
[2022-10-30] MEDS: CLOPIDOGREL 75 MG TABLET PO SCH (12:24)
== END 2022-10-30 16:14 | disposition home or self-care (01) ==
LOC: N.EDINP 13:42 → N.ED 13:42 → SUATTDRO 15:18 → N.EDINP 16:26 → N.2W 16:51
PROVIDERS: ADMIT Internal Medicine; ATTEND Internal Medicine

== ENCOUNTER 2022-11-16 19:15 | Inpatient (IN) ==
[2022-11-16] MEDS ORDERED: METOCLOPRAMIDE 10 MG/2 ML VIAL IV PRN (22:04)
[2022-11-16 22:34] LABS: Basophils # 0.1 10*3/uL (0.0-0.2); Basophils % 0.9 % (0.0-0.8); Eosinophils # 0.5 10*3/uL (0.0-0.87); Eosinophils % 5.7 % (0.00-10.9); Hemoglobin 10.5 GM/DL (12.0-16.0); Immature Granulocytes % 0.4 %; Immature Granulocytes Absolute 0.03 #; Lymphocytes % 38.7 % (21.3-54.2); Mean Corpuscular HGB Conc 32.8 GM/DL (32-36); Mean Corpuscular Volume 101.3 FL (87-102); Mean Platelet Volume 10.7 FL (9.6-12.0); Monocytes # 0.5 10*3/uL (0.11-0.8); Monocytes % 6.5 % (1.7-12.7); Neutrophils % 47.8 % (38.7-73.9); Platelet Count 200 T/CUMM (130-400); Red Blood Count 3.16 MC/CUMM (3.8-5.5); Red Cell Distribution Width 13.4 % (9.3-17.3); White Blood Count 7.9 T/CUMM (4-12)
[2022-11-16 22:44] LABS: PT Patient Result 11.3 SECS (10.1-12.1); Partial Thromboplastin Time 31.9 SECS (23.7-32.9)
[2022-11-16] MEDS ORDERED: hydrALAZINE 20 MG/1 ML VIAL IV PRN (22:44)
[2022-11-16] MEDS ORDERED: PROMETHAZINE 25 MG/1 ML VIAL IM PRN (22:44)
[2022-11-16] MEDS ORDERED: NICOTINE 21 MG/24 HR PATCH TRANSDERM PRN (22:44)
[2022-11-16] MEDS ORDERED: ALBUTEROL/IPRATROPIUM 3 ML NEB RESP TX PRN (22:44)
[2022-11-16 22:54] LABS: Albumin 2.5 G/DL (3.4-5.0); Bilirubin,Direct 0.11 MG/DL (0.0-0.20); Bilirubin,Indirect 0.3 MG/DL (0.0-1.0); Bilirubin,Total 0.4 MG/DL (0.20-1.00); Calcium 7.8 MG/DL (8.5-10.1); Osmolality,Calculated 292.4 MOS/KG (273-304); Potassium 5.1 MMOL/L (3.5-5.1); Total Protein 6.5 G/DL (6.4-8.2)
[2022-11-16] MEDS: ONDANSETRON 4 MG/2 ML VIAL IV PRN (23:38)
[2022-11-16] MEDS: MORPHINE 2 MG/1 ML SYRINGE IV PRN (23:38)
[2022-11-17] MEDS: MORPHINE 2 MG/1 ML SYRINGE IV PRN ×3 (04:24→13:24)
[2022-11-17] MEDS: ONDANSETRON 4 MG/2 ML VIAL IV PRN (04:24)
[2022-11-17 06:08] LABS: Basophils # 0.1 10*3/uL (0.0-0.2); Basophils % 0.7 % (0.0-0.8); Eosinophils # 0.5 10*3/uL (0.0-0.87); Eosinophils % 5.9 % (0.00-10.9); Hematocrit 32.5 VOL% (35.7-47.0); Hemoglobin 10.5 GM/DL (12.0-16.0); Immature Granulocytes % 0.1 %; Immature Granulocytes Absolute 0.01 #; Lymphocytes # 3.3 10*3/uL (1.4-4.0); Lymphocytes % 41.1 % (21.3-54.2); Mean Corpuscular HGB Conc 32.3 GM/DL (32-36); Mean Corpuscular Volume 103.2 FL (87-102); Mean Platelet Volume 10.6 FL (9.6-12.0); Monocytes # 0.5 10*3/uL (0.11-0.8); Monocytes % 5.6 % (1.7-12.7); Neutrophils % 46.6 % (38.7-73.9); Platelet Count 186 T/CUMM (130-400); Red Blood Count 3.15 MC/CUMM (3.8-5.5); Red Cell Distribution Width 13.5 % (9.3-17.3); White Blood Count 8.1 T/CUMM (4-12)
[2022-11-17 06:24] LABS: Calcium 7.9 MG/DL (8.5-10.1); Osmolality,Calculated 291.7 MOS/KG (273-304); Potassium 5.2 MMOL/L (3.5-5.1)
[2022-11-17] MEDS: PANTOPRAZOLE 40 MG VIAL IV SCH (09:16)
[2022-11-17] MEDS: HEPARIN 5,000 UNIT/1 ML VIAL SUBCUT SCH ×2 (09:17→21:29)
[2022-11-17] MEDS ORDERED: ACETAMINOPHEN 325 MG TABLET PO PRN (13:32)
[2022-11-17] MEDS ORDERED: ALBUTEROL 2.5 MG/3 ML NEB RESP TX PRN (13:32)
[2022-11-17] MEDS: GABAPENTIN 300 MG CAPSULE PO SCH (21:29)
[2022-11-17] MEDS: FLUTICASONE/SALMETEROL 100-50 DISKUS 14 DOSE INH SCH (21:34)
[2022-11-18] MEDS: BUDESONIDE 0.25 MG/2 ML NEB RESP TX SCH ×3 (02:30→20:55)
[2022-11-18] MEDS ORDERED: PANTOPRAZOLE 40 MG TABLET PO SCH (06:00)
[2022-11-18 06:04] LABS: Basophils # 0.1 10*3/uL (0.0-0.2); Basophils % 0.7 % (0.0-0.8); Eosinophils # 0.4 10*3/uL (0.0-0.87); Eosinophils % 6.3 % (0.00-10.9); Hematocrit 31.2 VOL% (35.7-47.0); Hemoglobin 10.2 GM/DL (12.0-16.0); Immature Granulocytes % 0.3 %; Immature Granulocytes Absolute 0.02 #; Lymphocytes # 2.8 10*3/uL (1.4-4.0); Lymphocytes % 40.2 % (21.3-54.2); Mean Corpuscular HGB Conc 32.7 GM/DL (32-36); Mean Corpuscular Volume 101.6 FL (87-102); Mean Platelet Volume 11.2 FL (9.6-12.0); Monocytes # 0.3 10*3/uL (0.11-0.8); Monocytes % 4.6 % (1.7-12.7); Neutrophils % 47.9 % (38.7-73.9); Platelet Count 182 T/CUMM (130-400); Red Blood Count 3.07 MC/CUMM (3.8-5.5); Red Cell Distribution Width 13.1 % (9.3-17.3); White Blood Count 6.9 T/CUMM (4-12)
[2022-11-18 06:21] LABS: Calcium 7.7 MG/DL (8.5-10.1); Osmolality,Calculated 282.2 MOS/KG (273-304); Potassium 4.6 MMOL/L (3.5-5.1)
[2022-11-18] MEDS: LEVOTHYROXINE 125 MCG TABLET PO SCH (06:25)
[2022-11-18] MEDS ORDERED: lisinopriL 10 MG TABLET PO SCH (09:00)
[2022-11-18] MEDS: ASPIRIN EC 81 MG TABLET PO SCH (10:10)
[2022-11-18] MEDS: MULTIVITAMIN (BEROCCA) TABLET PO SCH (10:10)
[2022-11-18] MEDS: FLUTICASONE/SALMETEROL 100-50 DISKUS 14 DOSE INH SCH ×2 (10:10→21:40)
[2022-11-18] MEDS: CLOPIDOGREL 75 MG TABLET PO SCH (10:10)
[2022-11-18] MEDS: LOSARTAN 50 MG TABLET PO SCH (10:10)
[2022-11-18] MEDS: GABAPENTIN 300 MG CAPSULE PO SCH ×3 (10:10→21:07)
[2022-11-18] MEDS: HEPARIN 5,000 UNIT/1 ML VIAL SUBCUT SCH ×2 (10:30→21:06)
[2022-11-18] MEDS: PANTOPRAZOLE 40 MG VIAL IV SCH (10:32)
[2022-11-18] MEDS: HYOSCYAMINE 0.125 MG TABLET PO SCH ×2 (11:39→21:07)
[2022-11-18] MEDS: INSULIN LISPRO 100 UNIT/ML SUBCUT SCH ×2 (18:07→21:41)
[2022-11-18] MEDS: POLYETHYLENE GLYCOL POWDER 17 GM PACK PO SCH (21:07)
[2022-11-18] MEDS: PANTOPRAZOLE 40 MG TABLET PO SCH (21:07)
[2022-11-19 04:59] LABS: Basophils % 0.6 % (0.0-0.8); Eosinophils # 0.3 10*3/uL (0.0-0.87); Eosinophils % 4.8 % (0.00-10.9); Hematocrit 31.3 VOL% (35.7-47.0); Hemoglobin 10.4 GM/DL (12.0-16.0); Immature Granulocytes % 0.3 %; Immature Granulocytes Absolute 0.02 #; Lymphocytes # 2.5 10*3/uL (1.4-4.0); Lymphocytes % 39.6 % (21.3-54.2); Mean Corpuscular HGB Conc 33.2 GM/DL (32-36); Mean Corpuscular Volume 99.4 FL (87-102); Mean Platelet Volume 10.8 FL (9.6-12.0); Monocytes # 0.4 10*3/uL (0.11-0.8); Monocytes % 5.8 % (1.7-12.7); Neutrophils % 48.9 % (38.7-73.9); Platelet Count 171 T/CUMM (130-400); Red Blood Count 3.15 MC/CUMM (3.8-5.5); Red Cell Distribution Width 12.8 % (9.3-17.3); White Blood Count 6.2 T/CUMM (4-12)
[2022-11-19 05:22] LABS: Calcium 8.1 MG/DL (8.5-10.1); Osmolality,Calculated 276.5 MOS/KG (273-304); Potassium 4.6 MMOL/L (3.5-5.1)
[2022-11-19 05:32] LABS: Phosphorous 5.3 MG/DL (2.5-4.9); Thyroid Stimulating Hormone 1.68 uIU/ml (0.358-3.74)
[2022-11-19] MEDS: LEVOTHYROXINE 125 MCG TABLET PO SCH (06:10)
[2022-11-19] MEDS: BUDESONIDE 0.25 MG/2 ML NEB RESP TX SCH ×2 (06:48→20:07)
[2022-11-19] MEDS: INSULIN LISPRO 100 UNIT/ML SUBCUT SCH ×4 (11:01→21:49)
[2022-11-19] MEDS: FLUTICASONE/SALMETEROL 100-50 DISKUS 14 DOSE INH SCH ×2 (11:29→21:52)
[2022-11-19] MEDS ORDERED: SODIUM CHLORIDE 0.9% 500 ML IV SCH (12:30)
[2022-11-19] MEDS: GABAPENTIN 300 MG CAPSULE PO SCH ×3 (12:50→21:48)
[2022-11-19] MEDS ORDERED: LIDOCAINE 2% 5 ML VIAL ONE (13:04)
[2022-11-19] MEDS ORDERED: propofoL 200 MG/20 ML VIAL IV ONE (13:04)
[2022-11-19] MEDS: MULTIVITAMIN (BEROCCA) TABLET PO SCH (16:45)
[2022-11-19] MEDS: LOSARTAN 50 MG TABLET PO SCH (16:45)
[2022-11-19] MEDS: HYOSCYAMINE 0.125 MG TABLET PO SCH ×2 (16:45→21:48)
[2022-11-19] MEDS: HEPARIN 5,000 UNIT/1 ML VIAL SUBCUT SCH ×2 (16:45→21:48)
[2022-11-19] MEDS: PANTOPRAZOLE 40 MG TABLET PO SCH ×2 (16:45→21:48)
[2022-11-19] MEDS: ASPIRIN EC 81 MG TABLET PO SCH (16:45)
[2022-11-19] MEDS: POLYETHYLENE GLYCOL POWDER 17 GM PACK PO SCH ×2 (16:45→21:49)
[2022-11-19] MEDS: CLOPIDOGREL 75 MG TABLET PO SCH (17:17)
[2022-11-19] MEDS: ONDANSETRON 4 MG/2 ML VIAL IV PRN (22:21)
[2022-11-19] MEDS ORDERED: diphenhydrAMINE CAP 25 MG CAPSULE PO ONE (23:23)
[2022-11-20 05:28] LABS: Basophils % 0.7 % (0.0-0.8); Eosinophils # 0.3 10*3/uL (0.0-0.87); Eosinophils % 5.4 % (0.00-10.9); Hematocrit 29.7 VOL% (35.7-47.0); Hemoglobin 9.9 GM/DL (12.0-16.0); Immature Granulocytes % 0.4 %; Immature Granulocytes Absolute 0.02 #; Lymphocytes # 2.4 10*3/uL (1.4-4.0); Lymphocytes % 44.1 % (21.3-54.2); Mean Corpuscular HGB Conc 33.3 GM/DL (32-36); Mean Corpuscular Volume 98.7 FL (87-102); Mean Platelet Volume 11.2 FL (9.6-12.0); Monocytes # 0.4 10*3/uL (0.11-0.8); Monocytes % 6.7 % (1.7-12.7); Neutrophils % 42.7 % (38.7-73.9); Platelet Count 164 T/CUMM (130-400); Red Blood Count 3.01 MC/CUMM (3.8-5.5); Red Cell Distribution Width 12.8 % (9.3-17.3); White Blood Count 5.5 T/CUMM (4-12)
[2022-11-20] MEDS: LEVOTHYROXINE 125 MCG TABLET PO SCH (05:45)
[2022-11-20 05:51] LABS: Calcium 7.9 MG/DL (8.5-10.1); Osmolality,Calculated 292.5 MOS/KG (273-304); Potassium 4.7 MMOL/L (3.5-5.1)
[2022-11-20] MEDS: BUDESONIDE 0.25 MG/2 ML NEB RESP TX SCH (06:57)
[2022-11-20 08:32] VITALS: BP 158/75
[2022-11-20] MEDS: INSULIN LISPRO 100 UNIT/ML SUBCUT SCH ×2 (10:19→13:03)
[2022-11-20] MEDS: ASPIRIN EC 81 MG TABLET PO SCH (12:30)
[2022-11-20] MEDS: MULTIVITAMIN (BEROCCA) TABLET PO SCH (12:30)
[2022-11-20] MEDS: LOSARTAN 50 MG TABLET PO SCH (12:30)
[2022-11-20] MEDS: FLUTICASONE/SALMETEROL 100-50 DISKUS 14 DOSE INH SCH (12:30)
[2022-11-20] MEDS: HEPARIN 5,000 UNIT/1 ML VIAL SUBCUT SCH (13:02)
[2022-11-20] MEDS: POLYETHYLENE GLYCOL POWDER 17 GM PACK PO SCH (13:02)
[2022-11-20] MEDS: HYOSCYAMINE 0.125 MG TABLET PO SCH (13:02)
[2022-11-20] MEDS: PANTOPRAZOLE 40 MG TABLET PO SCH (13:03)
[2022-11-20] MEDS: GABAPENTIN 300 MG CAPSULE PO SCH ×2 (13:03→13:05)
== END 2022-11-20 13:05 | disposition home or self-care (01) | DRG 241 ==
LOC: N.TELES → SUATTDRO 22:45
PROVIDERS: ADMIT Internal Medicine; ATTEND Internal Medicine

== ENCOUNTER 2022-12-18 04:37 | Observation (INO) ==
[2022-12-18] MEDS ORDERED: ONDANSETRON 4 MG/2 ML VIAL ONE (05:03)
[2022-12-18] MEDS ORDERED: HYDROmorphone 1 MG/1 ML SYRINGE ONE (05:03)
[2022-12-18] MEDS ORDERED: HYDROmorphone 1 MG/1 ML SYRINGE IV STA (05:10)
[2022-12-18] MEDS ORDERED: ONDANSETRON 4 MG/2 ML VIAL IV STA (05:10)
[2022-12-18 05:40] LABS: Calcium 7.4 MG/DL (8.5-10.1); Osmolality,Calculated 296.4 MOS/KG (273-304); Potassium 5.2 MMOL/L (3.5-5.1)
[2022-12-18] MEDS ORDERED: ONDANSETRON 4 MG/2 ML VIAL IV PRN (05:52)
[2022-12-18] MEDS ORDERED: hydrALAZINE 20 MG/1 ML VIAL IV PRN (05:52)
[2022-12-18] MEDS ORDERED: ACETAMINOPHEN 325 MG TABLET PO PRN (05:52)
[2022-12-18] MEDS ORDERED: HYDROmorphone 1 MG/1 ML SYRINGE IV PRN (05:58)
[2022-12-18] MEDS ORDERED: MELATONIN 3 MG TABLET PO PRN (06:02)
[2022-12-18] MEDS ORDERED: ALBUTEROL INHALER 18 GM INH PRN (06:19)
[2022-12-18] MEDS: INSULIN LISPRO 100 UNIT/ML SUBCUT SCH ×3 (06:30→18:26)
[2022-12-18] MEDS ORDERED: SODIUM ZIRCONIUM CYCLOSILICATE 10 GM PACK PO ONE (06:30)
[2022-12-18] MEDS ORDERED: MORPHINE 2 MG/1 ML SYRINGE IV STA (06:50)
[2022-12-18 07:03] LABS: Ferritin 928.1 ng/mL (8-252)
[2022-12-18 07:29] LABS: Basophils % 0.7 % (0.0-0.8); Eosinophils # 0.2 10*3/uL (0.0-0.87); Eosinophils % 2.8 % (0.00-10.9); Hematocrit 27.9 VOL% (35.7-47.0); Hemoglobin 8.8 GM/DL (12.0-16.0); Immature Granulocytes % 0.5 %; Immature Granulocytes Absolute 0.03 #; Lymphocytes # 1.3 10*3/uL (1.4-4.0); Lymphocytes % 21.9 % (21.3-54.2); Mean Corpuscular HGB Conc 31.5 GM/DL (32-36); Mean Corpuscular Volume 102.2 FL (87-102); Mean Platelet Volume 10.8 FL (9.6-12.0); Monocytes # 0.5 10*3/uL (0.11-0.8); Monocytes % 8.2 % (1.7-12.7); Neutrophils % 65.9 % (38.7-73.9); Platelet Count 162 T/CUMM (130-400); Red Blood Count 2.73 MC/CUMM (3.8-5.5); Red Cell Distribution Width 13.8 % (9.3-17.3)
[2022-12-18 07:41] LABS: PT Patient Result 11.4 SECS (10.1-12.1)
[2022-12-18] MEDS ORDERED: PANTOPRAZOLE 40 MG VIAL IV SCH (09:00)
[2022-12-18] MEDS: ASCORBIC ACID 500 MG TABLET PO SCH ×2 (11:15→20:48)
[2022-12-18] MEDS: DEXAMETHASONE 4 MG/1 ML VIAL IV SCH (11:15)
[2022-12-18] MEDS: FAMOTIDINE 20 MG TABLET PO SCH ×2 (11:15→20:48)
[2022-12-18] MEDS: CHOLECALCIFEROL 1,000 UNIT TABLET PO SCH (11:15)
[2022-12-18] MEDS: ZINC GLUCONATE 50 MG TABLET PO SCH (11:15)
[2022-12-18] MEDS: CETIRIZINE 10 MG TABLET PO SCH (11:16)
[2022-12-18 12:32] LABS: Calcium 7.5 MG/DL (8.5-10.1); Potassium 5.9 MMOL/L (3.5-5.1)
[2022-12-18] MEDS: PANTOPRAZOLE 40 MG VIAL IV SCH ×2 (15:31→20:49)
[2022-12-18] MEDS: HEPARIN 5,000 UNIT/1 ML VIAL SUBCUT SCH ×2 (15:31→21:06)
[2022-12-18 20:46] LABS: Calcium 8.2 MG/DL (8.5-10.1); Osmolality,Calculated 278.5 MOS/KG (273-304); Potassium 3.6 MMOL/L (3.5-5.1)
[2022-12-18] MEDS ORDERED: METOCLOPRAMIDE 10 MG/2 ML VIAL IV ONE (22:12)
[2022-12-19] MEDS: INSULIN LISPRO 100 UNIT/ML SUBCUT SCH ×4 (00:20→17:50)
[2022-12-19] MEDS: HEPARIN 5,000 UNIT/1 ML VIAL SUBCUT SCH ×3 (06:25→21:50)
[2022-12-19 06:38] LABS: Basophils % 0.8 % (0.0-0.8); Eosinophils % 0.6 % (0.00-10.9); Hematocrit 27.8 VOL% (35.7-47.0); Hemoglobin 9.2 GM/DL (12.0-16.0); Immature Granulocytes % 0.6 %; Immature Granulocytes Absolute 0.03 #; Lymphocytes # 2.2 10*3/uL (1.4-4.0); Lymphocytes % 41.1 % (21.3-54.2); Mean Corpuscular HGB Conc 33.1 GM/DL (32-36); Mean Corpuscular Volume 100.7 FL (87-102); Mean Platelet Volume 9.9 FL (9.6-12.0); Monocytes # 0.6 10*3/uL (0.11-0.8); Neutrophils % 44.9 % (38.7-73.9); Platelet Count 148 T/CUMM (130-400); Red Blood Count 2.76 MC/CUMM (3.8-5.5); Red Cell Distribution Width 13.5 % (9.3-17.3); White Blood Count 5.2 T/CUMM (4-12)
[2022-12-19 06:59] LABS: Albumin 2.5 G/DL (3.4-5.0); Bilirubin,Total 0.4 MG/DL (0.20-1.00); Calcium 7.9 MG/DL (8.5-10.1); Osmolality,Calculated 280.5 MOS/KG (273-304); Potassium 4.3 MMOL/L (3.5-5.1)
[2022-12-19] MEDS ORDERED: PROMETHAZINE INJ 25 MG in SODIUM CHLORIDE 0.9% 50 ML IV PRN (07:09)
[2022-12-19] MEDS: ASCORBIC ACID 500 MG TABLET PO SCH ×2 (11:53→20:48)
[2022-12-19] MEDS: FAMOTIDINE 20 MG TABLET PO SCH ×2 (11:53→20:48)
[2022-12-19] MEDS: CHOLECALCIFEROL 1,000 UNIT TABLET PO SCH (11:54)
[2022-12-19] MEDS: ZINC GLUCONATE 50 MG TABLET PO SCH (11:54)
[2022-12-19] MEDS: CETIRIZINE 10 MG TABLET PO SCH (11:54)
[2022-12-19] MEDS: PANTOPRAZOLE 40 MG VIAL IV SCH ×2 (12:16→21:47)
[2022-12-19] MEDS: DEXAMETHASONE 4 MG/1 ML VIAL IV SCH (12:17)
[2022-12-19] MEDS ORDERED: POLYETHYLENE GLYCOL POWDER 17 GM PACK PO PRN (15:43)
[2022-12-19] MEDS ORDERED: DEXTROSE 10% 250 ML BAG IV PRN (16:34)
[2022-12-19] MEDS ORDERED: GLUCAGON 1 MG VIAL IM PRN (16:34)
[2022-12-19] MEDS: METOCLOPRAMIDE 10 MG/2 ML VIAL IV SCH (17:48)
[2022-12-19] MEDS: amLODIPine 5 MG TABLET PO SCH (20:49)
[2022-12-19] MEDS ORDERED: ATORVASTATIN 40 MG TABLET PO SCH (21:00)
[2022-12-19] MEDS ORDERED: GABAPENTIN 300 MG CAPSULE PO SCH (21:00)
[2022-12-19] MEDS: FLUTICASONE/SALMETEROL 100-50 DISKUS 14 DOSE INH SCH (21:50)
[2022-12-20] MEDS: METOCLOPRAMIDE 10 MG/2 ML VIAL IV SCH ×3 (00:22→11:38)
[2022-12-20] MEDS: INSULIN LISPRO 100 UNIT/ML SUBCUT SCH ×2 (01:03→05:37)
[2022-12-20 04:53] LABS: Basophils % 0.2 % (0.0-0.8); Hematocrit 26.5 VOL% (35.7-47.0); Hemoglobin 9.2 GM/DL (12.0-16.0); Immature Granulocytes Absolute 0.04 #; Lymphocytes # 1.3 10*3/uL (1.4-4.0); Lymphocytes % 31.9 % (21.3-54.2); Mean Corpuscular HGB Conc 34.7 GM/DL (32-36); Mean Corpuscular Volume 95.7 FL (87-102); Mean Platelet Volume 10.9 FL (9.6-12.0); Monocytes # 0.4 10*3/uL (0.11-0.8); Neutrophils % 56.9 % (38.7-73.9); Platelet Count 153 T/CUMM (130-400); Red Blood Count 2.77 MC/CUMM (3.8-5.5); Red Cell Distribution Width 12.8 % (9.3-17.3); White Blood Count 4.1 T/CUMM (4-12)
[2022-12-20 05:11] LABS: Calcium 7.6 MG/DL (8.5-10.1); Osmolality,Calculated 289.8 MOS/KG (273-304); Potassium 4.3 MMOL/L (3.5-5.1)
[2022-12-20] MEDS ORDERED: LEVOTHYROXINE 125 MCG TABLET PO SCH (06:30)
[2022-12-20] MEDS: HEPARIN 5,000 UNIT/1 ML VIAL SUBCUT SCH (07:02)
[2022-12-20 08:43] VITALS: BP 119/56
[2022-12-20] MEDS ORDERED: LOSARTAN 50 MG TABLET PO SCH (09:00)
[2022-12-20] MEDS ORDERED: lisinopriL 10 MG TABLET PO SCH (09:00)
[2022-12-20] MEDS ORDERED: ASPIRIN EC 81 MG TABLET PO SCH (09:00)
[2022-12-20] MEDS ORDERED: CLOPIDOGREL 75 MG TABLET PO SCH (09:00)
[2022-12-20] MEDS ORDERED: MULTIVITAMIN (BEROCCA) TABLET PO SCH (09:00)
[2022-12-20] MEDS ORDERED: GABAPENTIN 300 MG CAPSULE PO SCH ×2 (09:00→12:00)
[2022-12-20] MEDS: ASCORBIC ACID 500 MG TABLET PO SCH (09:39)
[2022-12-20] MEDS: amLODIPine 5 MG TABLET PO SCH (09:40)
[2022-12-20] MEDS: ZINC GLUCONATE 50 MG TABLET PO SCH (09:40)
[2022-12-20] MEDS: FAMOTIDINE 20 MG TABLET PO SCH (09:41)
[2022-12-20] MEDS: CETIRIZINE 10 MG TABLET PO SCH (09:42)
[2022-12-20] MEDS: PANTOPRAZOLE 40 MG VIAL IV SCH (09:48)
[2022-12-20] MEDS: DEXAMETHASONE 4 MG/1 ML VIAL IV SCH (09:50)
[2022-12-20] MEDS: FLUTICASONE/SALMETEROL 100-50 DISKUS 14 DOSE INH SCH (09:59)
[2022-12-20] MEDS ORDERED: BACILLUS COAGULANS CAPLET PO SCH (11:30)
== END 2022-12-20 12:06 | disposition left against medical advice (07) ==
LOC: EDBD → EDUNIT# → N.ED 04:37 → N.EDINP 04:37 → N.3E 08:03
PROVIDERS: ADMIT Family Medicine; ATTEND Family Medicine